=== PATIENT | female | born 1990 | race Caucasian/White ===

== ENCOUNTER 2018-02-24 20:52 | Emergency (ER) | payer OTHER, SELFPAY ==
[2018-02-24 20:53] VITALS: BP 135/70; PULSE 91; RESP 17; TEMP 37; O2SAT 100; BMI 27.8
--- NOTE | 2018-02-24 21:12 | RAD_ITS ---
STUDY: X-RAY - RIGHT HAND REASON FOR EXAM: Female, 27 years old. Injury and pain second finger TECHNIQUE: Three view(s) of the hand were obtained. COMPARISON: None. FINDINGS: Bones: There is minimal cortical disruption in the tuft of the second finger. Joints: The visualized joints are unremarkable. Soft tissues: There is soft tissue swelling in the second finger with a small soft tissue defect in the distal second finger. Foreign body: None RAD/Hand Min 3 Views IMPRESSION: There is a nondisplaced fracture in the tuft of the right second finger. Electronically Signed: Rebecca Lopez MD at 21:46 EST Tel Direct: [phone], Service support ,
[2018-02-24 21:55] VITALS: RESP 16
--- NOTE | 2018-02-24 22:26 | ED.DCSUM_ITS ---
- ER Visit Summary Date of Service: 02/24/18 Chief Complaint: Finger in car door History of Present Illness: The patient is a 27 F who is here after catching her left index finger in the car door. This happened just prior to arrival. She reports pain to the area and noted an abrasion to the area. She is 8 months . Physical Examination: Afebrile vital signs unremarkable. Left index finger shows an abrasion at her left distal index finger, radial side. Nail is in place. The area is tender to palpation. Neurovascular intact. Test Results: X-rays show a tuft fracture. Emergency Department Course and Treatment: I have low suspicion for an open fracture. I did place the patient on Keflex for 3 days for prophylaxis. The wound was cleaned and dressed. Bacitracin applied. Will splint. She may use ice and Tylenol for pain. Follow up with Dr. Moya as needed. Treatment Plan: As above Disposition: Discharge Impression: 1. Left index finger tuft fracture This note was generated with [employer] dictation software. It may contain incorrect words, spelling, and punctuation that were not noted in review of the chart prior to signing ED Disposition - Plan for ED Patient: Chief Complaint: Upper Extremity Injury Referrals: Care Physician,No Primary [Primary Care Provider] -
--- NOTE | 2018-02-24 22:26 | ED.DEP ---
ED Disposition - Plan for ED Patient: Chief Complaint: Upper Extremity Injury Instructions: ED Fx Finger Closed Prescriptions: Cephalexin [Keflex] 500 mg PO Q6 #12 cap Referrals: Justin Moya MD [STAFF PHYSICIAN] -
[2018-02-24 22:49] VITALS: BP 117/76; PULSE 85; RESP 16; O2SAT 99
== END 2018-02-24 22:50 | disposition home or self-care (01) ==
PROVIDERS: Emergency Provider Emergency Medicine
DX: O9A.213 Injury, poisoning and certain other consequences of external causes complicating pregnancy, third trimester (principal); S62.601A Fracture of unspecified phalanx of left index finger, initial encounter for closed fracture; V48.4XXA Person boarding or alighting a car injured in noncollision transport accident, initial encounter; Y93.9 Activity, unspecified; Y92.9 Unspecified place or not applicable; Y99.9 Unspecified external cause status; Z3A.00 Weeks of gestation of pregnancy not specified
CPT/HCPCS: 73130; 99282

== ENCOUNTER 2018-03-14 10:30 | Inpatient (IN) | payer OTHER, SELFPAY ==
[2018-03-08 10:32] VITALS: BMI 27.8
[2018-03-14 10:12] VITALS: BMI 28.6
[2018-03-14 10:25] LABS: ROM Internal Control Test YES-OK TO RESULT pt. (Internal QC)
[2018-03-14 10:27] LABS: ROM Patient Test POSITIVE (Negative)
[2018-03-14] MEDS: Lactated Ringers 1,000 ML 50 ML IV ×3 (10:55→19:16)
[2018-03-14 11:11] LABS: Hematocrit 37.1 % (37-47); Hemoglobin 12.6 g/dl (12.0-15.0); Mean Corpuscular Hgb 30.8 pg (27.0-32.0); Mean Corpuscular Volume 90.7 fL (81-99); Mean Platelet Vol. 9.6 fl (6.2-12.0); Platelet Count 219 K/mm3 (150-450); RBC Distribution Width CV 13.5 % (11.6-14.6); RBC Distribution Width SD 44.5 fl (35.1-43.9); Red Blood Count 4.09 M/mm3 (4.2-5.4); Scan Indicated on CBC? Y/N NO; White Blood Count 11.9 K/mm3 (4.4-11.0)
[2018-03-14] MEDS: 0.9% Saline Lock 10 ML Syringe IV ×3 (11:38→22:07)
[2018-03-14] MEDS: miSOPROStol 25 MCG TABLET VAGINAL (12:18)
[2018-03-14] MEDS: fentaNYL-bupivacaine (epidural) 100 ML BAG EPIDURAL (16:05)
--- NOTE | 2018-03-14 18:29 | PCM.HP.OB ---
History Date of Admission: 03/14/18 Final SUPRIYA: 03/28/18 Final SUPRIYA Source: US <20 weeks Gestational age: 38 Weeks and 0 Days History of this : This is a 27 year-old, 1 para 0 female who presents at 38 weeks with EDC of 03/28/2018 by first trimester ultrasound alone presents complaining of spontaneous rupture membranes at approximately 7:55 AM. She denies any gross vaginal bleeding. She has had good movement. was complicated to date by antepartum anemia and bacterial vaginosis. Medical History: Medical History (Last Updated 03/08/18 @ 10:20 by Keily Alfaro) Anemia D64.9 Z34.90 Vision problems H54.7 Allergies No Known Allergies Allergy (Verified 03/08/18 10:25) Home Medications: Home Medications Ferrous Sulfate 325 mg PO DAILY 02/24/18 Pnv No.121/Iron/Folic Acid [ Multivitamin Tablet] 1 each PO DAILY 02/24/18 Smoking Status: Never smoker Alcohol: None Number of Fetus(es): 1 Heart Tracing: Normal baseline, moderate variability, some accelerations. No repetitive decelerations TOCO Analysis: Contractions every 2-4 min History Past Pregnancies: Past Pregnancies Delivery Date Name GA/Weeks Outcome Route Weight Gender Labor Length Anesthesia Delivery Location Provider FOB Expected Infant Delivery Method: Spontaneous Vaginal Review of Systems Constitutional: Denies: Chills, Fever Cardiovascular: Denies: Chest Pain Respiratory: Denies: Shortness of Breath Skin: Denies: Rash Neurological: Denies: Change in Speech, Slurred speech, Confusion Physical Exam General: Alert, Cooperative, No apparent distress Cardiovascular: Regular Rhythm Lungs: Normal air movement Abdomen: Soft, Non-Distended, Gravid, Appropriate for Gestational Age Extremities:: Other - 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 Spontaneous rupture membranes, now in active labor. Received Cytotec induction. Patient is comfortable with epidural. Estimated weight is less than 4500 g clinically and pelvis is adequate to expect vaginal delivery.
--- NOTE | 2018-03-14 18:35 | HP.PCM_ITS ---
History Date of Admission: 03/14/18 Final SUPRIYA: 03/28/18 Final SUPRIYA Source: US <20 weeks Gestational age: 38 Weeks and 0 Days History of this : This is a 27 year-old, 1 para 0 female who presents at 38 weeks with EDC of 03/28/2018 by first trimester ultrasound alone presents complaining of spontaneous rupture membranes at approximately 7:55 AM. She denies any gross vaginal bleeding. She has had good movement. was complicated to date by antepartum anemia and bacterial vaginosis. Medical History: Medical History (Last Updated 03/08/18 @ 10:20 by Keily Alfaro) Anemia D64.9 Z34.90 Vision problems H54.7 Allergies No Known Allergies Allergy (Verified 03/08/18 10:25) Home Medications: Home Medications Ferrous Sulfate 325 mg PO DAILY 02/24/18 Pnv No.121/Iron/Folic Acid [ Multivitamin Tablet] 1 each PO DAILY 02/24/18 Smoking Status: Never smoker Alcohol: None Number of Fetus(es): 1 Heart Tracing: Normal baseline, moderate variability, some accelerations. No repetitive dece lerations TOCO Analysis: Contractions every 2-4 min History Past Pregnancies: Past Pregnancies Delivery Date Name GA/Weeks Outcome Route Weight Infant Gender Labor Length Anesthesia Delivery Location Provider FOB Expected Infant Delivery Method: Spontaneous Vaginal Review of Systems Constitutional: Denies: Chills, Fever Cardiovascular: Denies: Chest Pain Respiratory: Denies: Shortness of Breath Skin: Denies: Rash Neurological: Denies: Change in Speech, Slurred speech, Confusion Physical Exam General: Alert, Cooperative, No apparent distress Cardiovascular: Regular Rhythm Lungs: Normal air movement Abdomen: Soft, Non-Distended, Gravid, Appropriate for Gestational Age Extremities:: 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 Spontaneous rupture membranes, now in active labor. Received Cytotec induction. Patient is comfortable with epidural. Estimated weight is less than 4500 g clinically and pelvis is adequate to expect vaginal delivery.
[2018-03-14] MEDS: Oxytocin 30 units/NS 500 ml 30 UNITS/500 ML IV.SOLN 334 UNITS IV (20:35)
--- NOTE | 2018-03-14 20:46 | PCM.OB.VAG ---
Vaginal Delivery Maternal Presentation: Spontaneous Rupture of Membranes Method of Induction: Cytotec Amniotic Membrane Rupture Type: Spontaneous at home Amniotic Fluid Description: Clear Final SUPRIYA: 03/28/18 Gestational age: 38 Weeks and 0 Days Date of Procedure: 03/14/18 Pre-Operative Diagnosis: labor Post-Operative Diagnosis: same Surgery/ Procedure Performed: Spontaneous Vaginal Delivery Type of Anesthesia: Epidural Description of Procedure: A vigorous male infant was delivered CHERYL over an intact perineum. The remainder the was delivered with maternal pushing and gentle traction only in less than 15 seconds. The Pitocin infusion was initiated for active management of the third stage. The cord was clamped and cut after 1 minute. The infant was attended to by the waiting nursing staff. The placenta was delivered spontaneously and intact. The cervix and vagina were intact. Sponge and needle counts were correct. A vaginal sweep was completed by me. Presentation: CHERYL Placental Delivery Description: Spontaneous Placenta Disposition: [facility] Cord Vessel Description: 3 Vessels Cord Entanglement: None Drain: Maki to straight drain Estimated Blood Loss: 200 Infant A gender: Male (1 minute): 8 (5 minute): 9 Episiotomy Description: None Laceration: None Medications given after delivery: IV Pitocin Complications: None
[2018-03-14] MEDS: Oxytocin 30 units/NS 500 ml 30 UNITS/500 ML IV.SOLN 167 UNITS IV (21:05)
[2018-03-15 00:14] VITALS: BP 116/69; PULSE 95; RESP 16; TEMP 37.5; O2SAT 99
[2018-03-15] MEDS: Naproxen 250 MG Tablet PO ×3 (00:47→20:11)
[2018-03-15] MEDS: Hydrocortisone 2.5% Crm 1 APPLIC TOPICAL (00:47)
--- NOTE | 2018-03-15 01:03 | NURSING ---
0040 epidural cath d/c with blue tip intact 0045 pt up to restroom, sherwood cath d/c pt tolerated well
[2018-03-15 03:30] VITALS: BP 105/56; PULSE 62; RESP 16; TEMP 37.3; O2SAT 99
[2018-03-15 08:30] VITALS: BP 99/53; PULSE 92; RESP 16; TEMP 36.8; O2SAT 96
--- NOTE | 2018-03-15 10:04 | PCM.PN.OB ---
Subjective: Patient complaining of cramping especially with nursing. Average lochia. No nausea vomiting. - Physical Exam General: Alert, Cooperative, No apparent distress Vital Signs Temp Pulse Resp BP Pulse Ox 99.2 F H 62 16 105/56 L 99 03/15/18 03:30 03/15/18 03:30 03/15/18 03:30 03/15/18 03:30 03/15/18 03:30 Oxygen Delivery Method Room Air Weight: 71.1 kg Body Mass Index (BMI) 28.6 Intake and Output for Last 24 Hours 03/13/18 03/14/18 03/15/18 23:59 23:59 23:59 Intake Total 2053 / 4 Output Total 2800 / 2800 2400 / 2400 Balance -746 / -746 -2400 / -2400 Laboratory Tests Past 24 Hrs 03/14/18 03/14/18 03/14/18 09:50 10:55 10:55 WBC 11.9 H RBC 4.09 L Hgb 12.6 Hct 37.1 MCV 90.7 MCH 30.8 MCHC 34.0 RDW 13.5 RDW Differential 44.5 H Plt Count 219 MPV 9.6 Vag Amniotic Fld Detect POSITIVE H Blood Type O POSITIVE Antibody Screen NEGATIVE Medical Necessity - Tobacco Use Smoking Status: Never smoker Assessment/Plan All Active Problems (Last Updated 03/08/18 @ 10:20 by Keily Alfaro) Closed nondisplaced fracture of distal phalanx of right index finger (Acute) Crushing injury of right index finger, initial encounter (Acute) day #1. Patient is doing well. We will see today to work on nursing. Likely discharge home tomorrow.
[2018-03-15] MEDS: Senna/Docusate Sodium 1 Tablet PO (10:58)
[2018-03-15 16:00] VITALS: BP 112/65; PULSE 87; RESP 20; TEMP 36.7; O2SAT 95
[2018-03-15 20:25] VITALS: BP 108/61; PULSE 87; RESP 16; TEMP 36.4; O2SAT 99
[2018-03-16 02:51] VITALS: BP 111/78; PULSE 82; RESP 18; TEMP 36.2; O2SAT 98
[2018-03-16 08:15] VITALS: BP 113/70; PULSE 78; RESP 16; TEMP 36.7; O2SAT 95
--- NOTE | 2018-03-16 08:23 | PCM.PN.OB ---
Subjective: Patient sitting up in bed, working with nursing staff at this time to help breastfeed . Patient has slightly inverted nipples, using shells and latch assist to help hal nipples. Patient reports no issues with urination or ambulation. Patient reports no BURNETT, scotoma or dizziness. Patient desires discharge later in day today after more contact time with consultants. Objective: Nipples without cracks or blisters, no erythema noted Abdomen NT x 4 quadrants, FF midline @ 2FB below umbilicus +2/4 reflexes in LE, no calf tenderness or edema noted perineum well approximated, scant rubra lochia - Physical Exam General: Alert, Oriented x3, Cooperative HEENT: Atraumatic, Normocephalic Neck: Supple Lungs: Normal air movement Cardiovascular: Regular rate, No murmurs Abdomen: Soft, Non Tender, Non-Distended Extremities: No edema, Capillary Refill Less than 3 Seconds Skin: No rashes, No breakdown Musculoskeletal: No Tenderness to Palpation of Joints or Extremities Neurological: Cranial nerves II-XII grossly intact Psych/Mental Status: Normal Affect, Appropriate Vital Signs Temp Pulse Resp BP Pulse Ox 97.1 F L 82 18 111/78 98 03/16/18 02:51 03/16/18 02:51 03/16/18 02:51 03/16/18 02:51 03/16/18 02:51 Oxygen Delivery Method Room Air Weight: 156 lb 11.979 oz Body Mass Index (BMI) 28.6 Intake and Output for Last 24 Hours 03/14/18 03/15/18 03/16/18 23:59 23:59 23:59 Intake Total 2053 / 2053 Output Total 2800 / 2800 2400 / 2400 Balance -746 / -746 -2400 / -2400 Medical Necessity - Tobacco Use Smoking Status: Never smoker Assessment/Plan All Active Problems (Last Updated 03/08/18 @ 10:20 by Keily Alfaro) Closed nondisplaced fracture of distal phalanx of right index finger (Acute) Crushing injury of right index finger, initial encounter (Acute) 27 y/o now, s/p , PPD #2, Normal PP Course P: 1) Discharge to home pending discharge 2) RTC at 2 weeks and 6 week PP with [facility] Samantha BALDWIN
[2018-03-16] MEDS: Dibucaine 30 GM Tube 1 APPLIC TOPICAL (08:29)
[2018-03-16 14:00] VITALS: BP 115/68; PULSE 89; RESP 16; TEMP 37.3; O2SAT 96
[2018-03-16 18:00] VITALS: BP 119/78; PULSE 89; RESP 16; TEMP 37.3; O2SAT 97
== END 2018-03-16 21:50 | disposition home or self-care (01) | DRG 807 ==
LOC: WPOUT 10:34 → WP 10:37
PROVIDERS: Admitting Provider Obstetrics & Gynecology; Referring Provider Obstetrics & Gynecology; Visit Provider Obstetrics & Gynecology
DX: O99.02 Anemia complicating childbirth (principal); Z37.0 Single live birth; Z3A.38 38 weeks gestation of pregnancy
CPT/HCPCS: 59025; 59050; 84112; 85027; 86850; 86900; 99218; J7120; 90686; A4216; G0378

== ENCOUNTER 2018-03-27 02:22 | Emergency (ER) | payer OTHER, SELFPAY ==
--- NOTE | 2018-03-27 03:30 | US_ITS ---
STUDY: ULTRASOUND OF THE FEMALE PELVIS - COMPLETE REASON FOR EXAM: Female, 27 years old. Vaginal bleeding with clots. 12 days .. TECHNIQUE: Transabdominal TECHNICAL QUALITY: Adequate. COMPARISON: None. FINDINGS: The uterus is anteverted and is in a midline position. The uterus measures 11.1 x 7.8 x 5.9 cm. Normal uterine cervix. The contour of the endometrium is not well defined. Endometrium measures approximately 2.5 cm in thickness and it is heterogeneous. Color Doppler signal is seen within the endometrium, and it may contain retained product of conception.. There is no demonstrated endometrial mass. There is no demonstrated myometrial mass. I.U.D. - The patient does not have an I.U.D. The right ovary is nonvisualized. The left ovary is visualized. The left ovary measures 3.0 x 2.5 x 2.1 cm. There is no left ovarian cyst or ovarian mass. There is no visualized left adnexal mass or complex lesion. There is normal arterial and normal venous vascularity. There is no fluid in the cul-de-sac. The volume of the bladder was 75 ml. Polycystic ovary disease: No. US/Pelvic (Non ) IMPRESSION: Thickened and heterogeneous endometrium, which contains color Doppler signal, suspicious for retained products of conception. Electronically Signed: Horace Harmon MD at 4:21 EST , Service support ,
[2018-03-27 04:35] LABS: White Blood Count 10.6 K/mm3 (4.4-11.0)
[2018-03-27 04:36] LABS: Differential Indicated SCAN CRITERIA MET; Hemoglobin 14.6 g/dl (12.0-15.0); Mean Corpuscular Hgb 30.5 pg (27.0-32.0); Mean Platelet Vol. 8.1 fl (6.2-12.0); Neutrophil % 62.8 % (47-70); POSITIVE COUNT NO; POSITIVE DIFFERENTIAL NO; POSITIVE MORPHOLOGY YES; Platelet Count 235 K/mm3 (150-450); RBC Distribution Width CV 12.6 % (11.6-14.6); RBC Distribution Width SD 41.1 fl (35.1-43.9); Red Blood Count 4.78 M/mm3 (4.2-5.4)
[2018-03-27 04:37] LABS: Absolute Lymphocyte Count 2.69 X10^3/ul (0.83-4.51); Absolute Neutrophil Count 6.6 X10^3/uL (2.0-7.7); Basophil# 0.05 X10^3/uL; Basophil% 0.5 % (0-1); Eosinophil# 0.28 X10^3/uL; Eosinophils% 2.6 % (0-5); Lymphocyte # 2.69 X10^3/ul (4.0); Lymphocyte % 25.4 % (19-41); Monocyte# 0.89 X10^3/uL; Monocyte% 8.4 % (0-10); Neutrophil # 6.64 X10^3/uL (2.7-7.7)
[2018-03-27 04:38] LABS: Anisocytosis RARE; Platelet Estimate ADEQUATE (ADEQ)
[2018-03-27 05:04] LABS: ALB/GLOB Ratio 0.8 RATIO (0.9-2.4); AST(SGOT) 18 U/L (15-37); Alanine Aminotransfer ALT/SGPT 24 U/L (13-56); Albumin, Serum 3.1 g/dL (3.2-5.0); Alkaline Phosphatase 134 U/L (45-117); Anion Gap 8 (5-15); BUN 21 mg/dL (7-18); Calcium,Total 9.1 mg/dL (8.5-10.1); Chloride 108 mmol/L (98-107); Creatinine, Serum 0.75 mg/dL (0.55-1.02); EST Glomerular Filtration Rate 97 mL/min (>60); Est Glom Filt Rate - Afr Amer 118 mL/min (>60); Glucose 101 mg/dL (74-106); Potassium 3.9 mmol/L (3.5-5.1); Protein, Total 7.1 g/dL (6.4-8.2); Sodium Level 140 mmol/L (136-145)
--- NOTE | 2018-04-17 01:17 | ED.DCSUM_ITS ---
- ER Visit Summary Date of Service: 03/27/2018 Chief Complaint: Vaginal bleeding History of Present Illness: The patient is a 27 F who is 12 days . Tonight she developed bleeding with large clots and mild cramping. She states that her lochia had significantly improved following her delivery. She is Ab0. Dr. Mccloud is her physician. No significant medical problems. No prior surgeries. No syncope. Physical Examination: Afebrile vital signs are stable Gen: Well-nourished well-developed Head: Normocephalic atraumatic Eyes: Perrl EOMI ENT: TMs clear no rhinorrhea moist mucous membranes Neck: Supple no lymphadenopathy no JVD nontender CVS: Regular rate rhythm no murmurs normal S1-S2 Respiratory: No distress clear to auscultation bilaterally chest nontender Abdomen: Soft nontender nondistended normal bowel sounds no masses Back: Nontender Extremity: Nontender no edema Skin: Normal color no rash Neuro: alert orientated ?3 CN II-XII intact normal strength sensation reflexes gait cerebellar Psych: Normal affect normal mood Test Results: Basic labs were obtained as well as pelvic ultrasound. Emergency Department Course and Treatment: I reviewed labs pelvic ultrasound history with on-call CLINICAL TRIAL COORDINATOR. They like to have the patient discharged home and they will see her in the office in a couple hours. We did talk about the possibility of retained products Impression: 1. bleeding This note was generated with [employer] dictation software. It may contain incorrect words, spelling, and punctuation that were not noted in review of the chart prior to signing ED Disposition - Plan for ED Patient: Disposition: Home or Assisted Living Referrals: Care Physician,No Primary [Primary Care Provider] -
--- OUTSIDE RECORDS SUMMARY | 2018-06-28 16:45 | XMS RPT_ITS ---
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 35.1-43.9 fl Normal RDW SD 41.1 LAB L100.1900 150-450 K/mm3 Normal PLT 235 LAB L100.2000 6.2-12.0 fl Normal MPV 8.1 LAB L100.2100 47-70 % Normal NEUT% 62.8 LAB L100.2200 19-41 % Normal LY% 25.4 LAB L100.2300 0-10 % Normal MONO% 8.4 LAB L100.2400 0-5 % Normal EO% 2.6 LAB L100.2500 0-1 % Normal BASO% 0.5 LAB L100.2550 0.0-0.9 % Normal IM GRAN % 0.300 Result Comment: IG% - Immature Granulocytes (promyelocytes, myelocytes and metamyelocytes) > 1% indicates that a LEFT SHIFT is Present. LAB L100.2620 2.0-7.7 X10 3/uL Normal Absolute Neut 6.6 LAB L100.2720 0.83-4.51 X10 3/ul Normal Absolute Lymph 2.69 LAB L100.5500 ADEQ Normal PLT EST ADEQUATE LAB L100.7300 Normal ANISO RARE Performed By: #### L100.0100 #### [facility] [place], [address] PROGRESS Observed: 03/15/2018 Status: COMPLETED Source: [place] 4:43 PM [facility] REPOSITORY HNO ID: [id number] Author: Emily Mosley LPN Service: (none) Author Type: (none) Type: Progress Notes Filed: 03/15/2018 4:43 PM Note Text: Pt delivered via at [facility] on 03/14/[address] Georges. See OB Outcome note. Emily Mosley LPN HOSP Observed: 03/15/2018 Status: COMPLETED Source: [place] 12:00 AM [facility] REPOSITORY Patient Update (WOOB) KELLY KANG ([id number]) 1990 F Date Time Provider Department 03/15/18 RUBEN GEORGES During your visit today, we recorded the following information about you: Emily Mosley LPN 03/15/2018 4:43 PM Signed Pt delivered via at [facility] on 03/14/[address] Georges. See OB Outcome note. Emily Mosley LPN Allergies As of Date: 03/15/2018 Noted Allergy Reaction environmental [Other] 07/18/2005 Comments: itchy, watery eyes in summer Date Reviewed: 03/09/2018 Reviewed by: Tricia Magana - Fully Assessed Prescriptions as of 03/15/2018 Sig: CEPHALEXIN 500 MG CAPSULE FERROUS SULFATE 325 MG (65 MG* Take 1 tablet by mouth twice * VITAMIN,CALCIUM,MINE* Take 1 tablet by mouth. Problem List As Of Date 03/15/2018 Noted Resolved Anal Pruritus [L29.0] INVALID FOR* History of depression [Z86.59] INVALID FOR* More... Family history of congenital heart defect [Z82.*INVALID FOR* More... Encounter for supervision of normal first pregn*INVALID FOR* Anemia of , third trimester [O99.013] INVALID FOR* More... BV (bacterial vaginosis) [N76.0, B96.89] INVALID FOR* More... Encounter Status:Closed by ABIGAIL MOSLEYBERLY ROSELINE on 03/15/18 EMERGENCY DEPARTMENT Observed: 03/14/2018 Status: F Source: [place] SUMMARY 10:28 PM [facility] REPOSITORY [facility] Medical Records Department [address] [place] [address] Emergency Department Summary 02/24/182223 MR#: [id number] Acct: [id number] Name: KELLY KANG Rep #: [id number] : 1990 27 From: Sharif Rosa MD PCP: Care Physician, No Primary Status: DEP ER ADDENDUM by Sharif Rosa MD on 03/14/18 at 2228 Addendum: Please note it was the right index finger that was injured in the car door. Corrected impression 1. Right index finger tuft fracture 03/14/182227 Date Sharif Rosa MD cc: No Primary Care Physician * Signed - ER Visit Summary Date of Service: 02/24/18 Chief Complaint: Finger in car door History of Present Illness: The patient is a 27 F who is here after catching her left index finger in the car door. This happened just prior to arrival. She reports pain to the area and noted an abrasion to the area. She is 8 months . Physical Examination: Afebrile vital signs unremarkable. Left index finger shows an abrasion at her left distal index finger, radial side. Nail is in place. The area is tender to palpation. Neurovascular intact. Test Results: X-rays show a tuft fracture. Emergency Department Course and Treatment: I have low suspicion for an open fracture. I did place the patient on Keflex for 3 days for prophylaxis. The wound was cleaned and dressed. Bacitracin applied. Will splint. She may use ice and Tylenol for pain. Follow up with Dr. Slaby as needed. Treatment Plan: As above Disposition: Discharge Impression: 1. Left index finger tuft fracture This note was generated with Matchmove dictation software. It may contain incorrect words, spelling, and punctuation that were not noted in review of the chart prior to signing ED Disposition - Plan for ED Patient: Chief Complaint: Upper Extremity Injury Referrals: Care Physician,No Primary [Primary Care Provider] - What to do if you have Problems For any increased pain, shortness of breath, bleeding, nausea or vomiting, chest pain, or any unexpected problems, contact your Primary Care Provider. Call [facility] ([phone]) or report to the closest Emergency Room. Call 911 if necessary. 02/25/18 0036 <Electronically signed by Sharif Rosa MD> Date Sharif Rosa MD Cosigner Signature (If Indicated): Date CC: No Primary Care Physician OPERATIVE REPORT Observed: 03/14/2018 Status: F Source: [place] 8:48 PM [facility] REPOSITORY [facility] Medical Records Department [address] [place] [address] [place] [address] Operative Report 03/14/182045 MR#: [id number] Acct: [id number] Name: KELLY KANG Rep #: [id number] : 1990 27 From: Ruben Georges MD PCP: Care Physician, No Primary Status: ADM IN Location: [place] [id number] Vaginal Delivery Maternal Presentation: Spontaneous Rupture of Membranes Method of Induction: Cytotec Amniotic Membrane Rupture Type: Spontaneous at home Amniotic Fluid Description: Clear Final SUPRIYA: 03/28/18 Gestational age: 38 Weeks and 0 Days Date of Procedure: 03/14/18 Pre-Operative Diagnosis: labor Post-Operative Diagnosis: same Surgery/ Procedure Performed: Spontaneous Vaginal Delivery Type of Anesthesia: Epidural Description of Procedure: A vigorous male infant was delivered CHERYL over an intact perineum. The remainder the was delivered with maternal pushing and gentle traction only in less than 15 seconds. The Pitocin infusion was initiated for active management of the third stage. The cord was clamped and cut after 1 minute. The was attended to by the waiting nursing staff. The placenta was delivered spontaneously and intact. The cervix and vagina were intact. Sponge and needle counts were correct. A vaginal sweep was completed by me. Presentation: CHERYL Placental Delivery Description: Spontaneous Placenta Disposition: [facility] Cord Vessel Description: 3 Vessels Cord Entanglement: None Drain: Maki to straight drain Estimated Blood Loss: 200 Infant A gender: Male (1 minute): 8 (5 minute): 9 Episiotomy Description: None Laceration: None Medications given after delivery: IV Pitocin Complications: None 03/14/182047 <Electronically signed by Ruben Georges MD> Date Ruben Georges MD CC: No Primary Care Physician; Ruben Georges MD Signed HISTORY AND PHYSICAL Observed: 03/14/2018 Status: F Source: [place] EXAM 6:40 PM [facility] REPOSITORY [facility] Medical Records Department [address] [place] [address] History and Physical 03/14/18 1829 MR#: [id number] Acct: [id number] Name: KELLY KANG Rep #: [id number] : 1990 27 From: Ruben Georges MD PCP: Care Physician, No Primary Status: ADM IN Location: [id number] History Date of Admission: 03/14/18 Final SUPRIYA: 03/28/18 Final SUPRIYA Source: US <20 weeks Gestational age: 38 Weeks and 0 Days History of this : This is a 27 year-old, 1 para 0 female who presents at 38 weeks with EDC of 03/28/2018 by first trimester ultrasound alone presents complaining of spontaneous rupture membranes at approximately 7:55 AM. She denies any gross vaginal bleeding. She has had good movement. was complicated to date by antepartum anemia and bacterial vaginosis. Medical History: Medical History (Last Updated 03/08/18 @ 10:20 by Keily Alfaro) Anemia D64.9 Z34.90 Vision problems H54.7 Allergies No Known Allergies Allergy (Verified 03/08/18 10:25) Home Medications: Home Medications Ferrous Sulfate 325 mg PO DAILY 02/24/18 Pnv No.121/Iron/Folic Acid [ Multivitamin Tablet] 1 each PO DAILY 02/24/18 Smoking Status: Never smoker Alcohol: None Number of Fetus(es): 1 Heart Tracing: Normal baseline, moderate variability, some accelerations. No repetitive decelerations TOCO Analysis: Contractions every 2-4 min History Past Pregnancies: Past Pregnancies Delivery Name GA/Weeks Outcome Route WeiInfant GeLabor LenAnesthesiDelivery Provider FOB Date ght nder gth a Location Expected Delivery Method: Spontaneous Vaginal Review of Systems Constitutional: Denies: Chills, Fever Cardiovascular: Denies: Chest Pain Respiratory: Denies: Shortness of Breath Skin: Denies: Rash Neurological: Denies: Change in Speech, Slurred speech, Confusion Physical Exam General: Alert, Cooperative, No apparent distress Cardiovascular: Regular Rhythm Lungs: Normal air movement Abdomen: Soft, Non-Distended, Gravid, Appropriate for Gestational Age Extremities:: Other - 1+ edema SURVEILLANCE SPECIALIST: Normal external genitalia Estimated gestational size: Appropriate for gestational size Presentation: Cephalic Assessment/Plan All Active Problems (Last Updated 03/08/18 @ 10:20 by Keily Alfaro) Closed nondisplaced fracture of distal phalanx of right index finger (Acute) Crushing injury of right index finger, initial encounter (Acute) This is a 27 year-old, 1 para 0 at 38 weeks gestation. Spontaneous rupture membranes, now in active labor. Received Cytotec induction. Patient is comfortable with epidural. Estimated weight is less than 4500 g clinically and pelvis is adequate to expect vaginal delivery. 03/14/18 1840 <Electronically signed by Ruben Georges MD> Date Ruben Georges MD Cosigner Signature: Date (if applicable) CC: No Primary Care Physician; Ruben Georges MD Signed CBC-COMPLETE BLOOD CNT Collected: 03/14/2018 Status: F Source: [place] NO DIFF 10:55 AM [facility] REPOSITORY TYPE CODE TESTS RESULT OUT OF RANGE REFERENCE UNITS LAB L100.1000 4.4-11.0 K/mm3 High WBC 11.9 LAB L100.1200 4.2-5.4 M/mm3 Low RBC 4.09 LAB L100.1300 12.0-15.0 g/dl Normal HGB 12.6 LAB L100.1400 37-47 % Normal HCT 37.1 LAB L100.1500 81-99 fL Normal MCV 90.7 LAB L100.1600 27.0-32.0 pg Normal MCH 30.8 LAB L100.1700 32-36 g/gl Normal MCHC 34.0 LAB L100.1810 11.6-14.6 % Normal RDW CV 13.5 LAB L100.1820 35.1-43.9 fl High RDW SD 44.5 LAB L100.1900 150-450 K/mm3 Normal PLT 219 LAB L100.2000 6.2-12.0 fl Normal MPV 9.6 Performed By: #### L100.0500 #### [facility] [address] [facility]. [place], [place], [address] TYPE AND SCREEN Collected: 03/14/2018 Status: F Source: [place] 10:55 AM [facility] REPOSITORY Order Comment: Reason for Type AND Screen/Red Cells: ROUTINE TYPE CODE TESTS RESULT OUT OF RANGE REFERENCE UNITS LAB B10.0800 O Normal BLOOD TYPE GEL POSITIVE LAB B100.4000 Normal Antibody NEGATIVE Screen Performed By: #### B101.7450 #### [facility] [address] [place], [place], [address] (ROM) RUPTURE OF Collected: 03/14/2018 Status: F Source: [place] [facility] 9:50 AM [facility] REPOSITORY TYPE CODE TESTS RESULT OUT OF REFERENCE UNITS RANGE LAB L205.1310 Negative High ROM POSITIVE Result Comment: Amniotic fluid present indicates rupture of Membranes. RESULTS CALLED TO ARMIDA 03/14/18 Zack Corteztzer. REPORT READ BACK BY ARMIDA . Performed By: #### L205.1000 #### [facility] [place], [address] PLASTIC SURGERY Observed: 03/12/2018 Status: F Source: [place] VISIT REPORT 10:50 AM [facility] REPOSITORY [facility] [address] [place] [address] OFFICE VISIT Date of Service: 03/08/18 MR#: [id number] Acct: [id number] Name: KELLY KANG Rep #: [id number] : 1990 Provider: Justin Moya MD Age/Sex: 27/F Location: [facility] Status: Signed Intake Vital Signs03/08/18 Body Mass Index (BMI) 27.8 03/08/18 Height 5 ft 2 in 03/08/18 Weight: 155 lb Intake Visit Reasons: evaluation crush injury right index finger tip with nondisplaced fracture Sales Service Promoter Required: No Accompanied by: None Is patient in pain?: Yes (RIGHT HAND INDEX FINGER PAIN THROBBING WHEN BUMPS IT) Pain scale (1-10): 5 Allergies No Known Allergies Allergy (Verified 03/08/18 10:25) Medications Cephalexin [Keflex] 500 mg PO Q6 #12 cap 02/24/18 [Rx] Ferrous Sulfate 325 mg PO DAILY 02/24/18 [History Confirmed 02/24/18] Pnv No.121/Iron/Folic Acid [ Multivitamin Tablet] 1 ea PO DAILY 02/24/18 [History Confirmed 02/24/18] Is last menstrual period known: Yes Post menopausal: No Patient : Yes PFSH Medical History Anemia (Acute) (Acute) Vision problems (Acute) Family History Mother Anemia Anxiety Father Arthritis Hypertension Grandfather Diabetes Grandmother Diabetes Social History Smoking Status: Never smoker alcohol intake: former substance use type: does not use additional social history: DOES NOT USE ASPIRIN DOES NOT USE IBUPROFEN HPI evaluation crush injury right index finger tip with nondisplaced fracture: Details: HISTORY OF PRESENT ILLNESS 27 year old woman who is 8 months who caught her right index finger in the car door on 02/24/18. In the ED, an xray showed a nondisplaced tuft fracture of the distal phalanx. She was given Keflex for a few days and a tip splint. She has pain in the tip of her right index finger when she bumps it. She presents today for further evaluation and treatment. REVIEW OF SYSTEMS General - Denies fever, fatigue, and weight loss. Eyes - Denies cataracts and glaucoma. ENT - Denies nasal congestion and sore throat. Endocrine - Denies excessive thirst and urination. Skin - Denies suspicious lesions and skin cancer. Musculoskeletal - Denies joint pain, joint stiffness, weakness of muscles and joints, back pain, and arthritis. Has nondisplaced fracture distal tuft of distal phalanx right index finger from crush injury. Neuro - Denies headaches. Cardiovascular - Denies chest pain, fatigue, and shortness of breath with exertion. Psych - Denies anxiety and depression. Respiratory - Denies chronic cough and shortness of breath. Gastrointestinal - Denies nausea, vomiting, diarrhea. Has constipation. Hematologic - Denies abnormal bruising and bleeding. Has anemia. Genitourinary - Denies hematuria. Has urinary frequency. Is 8 months . PHYSICAL EXAMINATION General - Alert and Oriented. HEENT - PERRL. EOMI. Throat is clear. Neck - Supple and nontender. No cervical adenopathy. Lungs - Clear to auscultation. Heart - Regular rate and rhythm. Abdomen - Soft and nondistended. Extremities - FROM. No axillary adenopathy. Radial pulses are palpable. Patient is right hand dominant. On the right index finger is a healing abrasion on the radial aspect of the finger tip. Nail plate is intact. No evidence of subungual hematoma. Flexion and extension are intact. Mild paresthesias at the finger tip. Mild swelling at the tip. Mild tenderness to palpation. Fingers are warm with good capillary refill. Neuro - CN II-XII grossly intact. Psych - Normal mood and affect. ASSESSMENT 1. Crush injury right index finger tip. 2. Nondisplaced tuft fracture of distal phalanx right index finger. 3. 8 months . PLAN Xray reviewed. Nondisplaced tuft fracture is subtle. Continue tip splint. I shortened it so she has range of motion of her PIP and DIP joints. Encourage range of motion exercises to minimize stiffness. With a crush nature to the injury, she may develop chronic problems that may need to be addressed in the future. These include a nail deformity or a painful bone cyst with suboptimal healing of the nondisplaced fracture. Followup 2 weeks unless she is in labor. Then she can followup after the delivery of her child. Will repeat the xray after the delivery of the child. No need to continue antibiotics at this time as there is no evidence of infection. However these types of fractures in the setting of a crush injury can develop suboptimal healing of the bone and possible osteomyelitis. Will reassess after the delivery of her child and may resume antibiotics at that time. Patient was informed of the risks and complications of the procedure including alternatives to surgery. These were discussed with the patient personally. Patient voices understanding and wishes to proceed with the current plan of nonoperative splinting. There is no need for urgent surgery at this time. If she develops any late effects of her crush injury or nondisplaced tuft fracture, can discuss surgical options at that time. Assessment AND Plan Problems 1. Closed nondisplaced fracture of distal phalanx of right index finger S62.660A 2. Crushing injury of right index finger, initial encounter S67.190A 3. Third trimester Z34.93 Coding Level of Care Code Off vis,new,level 4 Diagnoses Closed nondisplaced fracture of distal phalanx of right index finger S62.660A Crushing injury of right index finger, initial encounter S67.190A Third trimester Z34.93 03/12/18 1050 <Electronically signed by Justin Moya MD> Date Justin Moya MD Cosigner Signature: Date (if applicable) CC: GROUP B STREP PCR Collected: 03/02/2018 Status: F Source: [place] 11:45 AM [facility] RE[facility] TYPE CODE TESTS RESULT OUT OF REFERENCE UNITS RANGE LAB GBPCRT Negative for GROUP Group B B STREP PCR Streptococcus by PCR. Performed By: #### GBPCR #### [facility] [address] [place], [place] [address] DISCHARGE INSTRUCTION Observed: 02/25/2018 Status: F Source: [place] 12:36 AM [facility] REPOSITORY [facility] Medical Records Department [address] [place] [address] Discharge Instruction 02/24/186 MR#: [id number] Acct: [id number] Name: KELLY KANG Rep #: [id number] : 1990 27 From: Sharif Rosa MD PCP: Care Physician, No Primary Status: DEP ER ED Disposition - Plan for ED Patient: Chief Complaint: Upper Extremity Injury Instructions: ED Fx Finger Closed Prescriptions: Cephalexin [Keflex] 500 mg PO Q6 #12 cap Referrals: Justin Moya MD [STAFF PHYSICIAN] - What to do if you have Problems For any increased pain, shortness of breath, bleeding, nausea or vomiting, chest pain, or any unexpected problems, contact your Primary Care Provider. Call [facility] ([phone]) or report to the closest Emergency Room. Call 911 if necessary. 02/25/18 0036 <Electronically signed by Sharif Rosa MD> Date Sharif Rosa MD Cosigner Signature (If Indicated): Date CC: No Primary Care Physician HAND MIN 3 VIEWS Observed: 02/24/2018 Status: F Source: [place] 9:13 PM [facility] REPOSITORY [facility] Imaging Services [address] [place] [address] Hand Min 3 Views MR#: [id number] Acct: [id number] Name: Kelly KangJourdan Rep #: [id number] : 1990 F 27 From: Rebecca Lopez MD PCP: Status: PRE ER Study: Hand Min 3 Views Date of Exam: 02/24/18 Exam# [id number] Ordering Dr: ProviderChris STUDY: X-RAY - RIGHT HAND REASON FOR EXAM: Female, 27 years old. Injury and pain second finger TECHNIQUE: Three view(s) of the hand were obtained. COMPARISON: None. FINDINGS: Bones: There is minimal cortical disruption in the tuft of the second finger. Joints: The visualized joints are unremarkable. Soft tissues: There is soft tissue swelling in the second finger with a small soft tissue defect in the distal second finger. Foreign body: None RAD/Hand Min 3 Views IMPRESSION: There is a nondisplaced fracture in the tuft of the right second finger. Electronically Signed: Rebecca Lopez MD at 21:46 EST Tel Direct: [phone], Service support , CC: ED PHYSICIAN PROVIDER Senior Network Systems Engineer: Signed PROGRESS Observed: 02/20/2018 Status: COMPLETED Source: [place] 2:50 PM [facility] [place] REPOSITORY [facility] ID: [id number] Author: Sejal Monge Ma Service: (none) Author Type: (none) Type: Progress Notes Filed: 02/20/2018 3:01 PM Note Text: Patient identified by name and date of . Kelly Kang presents today for a vaccination of Tdap. Patient denies an allergy to latex: yes Patient denies a severe (life-threatening) allergy to a previous dose of Tdap, DTP, DTaP, DT or Td vaccine. Yes Patient denies history of epilepsy or neurological problems: Yes Patient is afebrile and denies being moderately or severely ill: Yes Patient denies history of Guillain-[place] Syndrome (a severe paralytic illness): Yes Tdap Adacel injection was given without incident. See immunizations for details of immunizations administered today. VIS sheet provided: Yes Provider Tenisha Benson MD was present in office at time of injection. PROGRESS Observed: 02/20/2018 Status: COMPLETED Source: [place] 9:13 AM [facility] REPOSITORY HNO ID: [id number] Author: Rebecca Moise RN Service: (none) Author Type: (none) Type: Progress Notes Filed: 02/20/2018 9:14 AM Note Text: CLASS Date Attended: February 19, 2018 Introduction Credentials Expectations of a 3-hour class 1. Review of handouts 2. Hospital tour 3. Baby care class Stages of labor video Stages to call the doctor 1. SROM 2. Cervical changes 3. Bleeding vs. bloody show 4. Decreased movement Hospital Procedures 1. Internal/external monitors 2. IV therapy 3. AROM 4. Pitocin Pain Management 1. Epidural 2. Other pain medications 3. No medicinal comfort measures 4. Breathing/pushing Delivery methods 1. 2. Forceps 3. Vacuum extractor Physician presentations 1. OB-marine tower operator 2. Security Solutions Engineer 1. Mom's first hour 2. baby's first hour 3. baby's discharge protocol Completed childbirth education class. Rebecca Moise RN CNCNPATED Observed: 02/19/2018 Status: COMPLETED Source: [place] 12:00 AM [facility] REPOSITORY Education (WOOB) KELLY KANG ([id number]) 1990 F Date Time Provider Department 02/19/18 NURSE PNOB [facility] WOOB Reason for Visit: Class [4222] Progress Notes: Rebecca Moise RN 02/20/2018 9:14 AM Signed CLASS Date Attended: February 19, 2018 Introduction Credentials Expectations of a 3-hour class 1. Review of handouts 2. Hospital tour 3. Baby care class Stages of labor video Stages to call the doctor 1. SROM 2. Cervical changes 3. Bleeding vs. bloody show 4. Decreased movement Hospital Procedures 1. Internal/external monitors 2. IV therapy 3. AROM 4. Pitocin Pain Management 1. Epidural 2. Other pain medications 3. No medicinal comfort measures 4. Breathing/pushing Delivery methods 1. 2. Forceps 3. Vacuum extractor Physician presentations 1. OB-marine tower operator 2. Security Solutions Engineer 1. Mom's first hour 2. baby's first hour 3. baby's discharge protocol Completed childbirth education class. Rebecca Moise RN During your visit today, we recorded the following information about you: Allergies As of Date: 02/19/2018 Noted Allergy Reaction environmental [Other] 07/18/2005 Comments: itchy, watery eyes in summer Date Reviewed: 02/05/2018 Reviewed by: Ruben Georges - Fully Assessed Prescriptions as of 02/19/2018 Sig: FERROUS SULFATE 325 MG (65 MG* Take 1 tablet by mouth twice * VITAMIN,CALCIUM,MINE* Take 1 tablet by mouth. Encounter Status:Closed by REBECCA MOISE RN on 02/20/18 Observed: 02/05/2018 Status: F Source: [place] [facility] PREP 5:17 PM [facility] REPOSITORY Sp. Request/Comment: - Swab Smear Result - Negative for Trichomonas vaginalis antigen This test was developed and its performance characteristics determined by [facility]'s [facility] Pathology and Laboratory Medicine [place] ([facility] It has not been cleared or approved by the FDA. -[facility] is regulated under CLIA as qualified to perform high-complexity testing. This test is used for clinical purposes. It should not be regarded as investigational or for research. Performed By: #### TRICHO #### [facility] OnetoOnetext0 PixelPin [place] [id number] Observed: 02/05/2018 Status: F Source: [place] BACT/CAND VAG GRM [facility] 5:17 PM [facility] REPOSITORY Sp. Request/Comment: - Swab Smear Result - BACTERIAL VAGINOSIS RESULT: Stain results consistent with bacterial vaginosis. --> ABNORMAL ALERT No Yeast observed Few Polymorphonuclear leukocytes Many --> ABNORMAL ALERT Clue cells present --> ABNORMAL ALERT Performed By: #### BVCNSM #### [facility] OnetoOnetext0 Pixel[place] [id number] PROGRESS Observed: 01/10/2018 Status: COMPLETED Source: [place] 1:34 PM [facility] REPOSITORY HNO ID: [id number] Author: Nuris Fuller Service: (none) Author Type: Physician Type: Progress Notes Filed: 01/10/2018 1:34 PM Note Text: Can you please let the patient know I sent in iron to take BID for anemia? Thanks! CBC AND DIFFERENTIAL Collected: 01/09/2018 Status: F Source: [place] 9:54 AM [facility] REPOSITORY TYPE CODE TESTS RESULT OUT OF REFERENCE UNITS RANGE LAB WBC 3.70-11.00 k/uL WBC High 13.91 LAB RBC 3.90-5.20 m/uL Low RBC 3.51 LAB HGB 11.5-15.5 g/dL Low Hemoglobin 10.5 LAB HCT 36.0-46.0 % Low Hematocrit 33.6 LAB MCV 80.0-100.0 fL MCV 95.7 LAB MCH 26.0-34.0 pG MCH 29.9 LAB MCHC 30.5-36.0 g/dL MCHC 31.3 LAB RDWCV 11.5-15.0 % RDW-CV 12.9 LAB PLTCT 150-400 k/uL Platelet Count 257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 in the treatment of patients with some cancers and other illnesses. While the actual process of collecting cord blood is straightforward, many parents are not even aware that this option now exists, much less familiar with all the issues involved. The case for saving your baby's cord blood The blood running back and forth between your baby and the placenta is full of immature cells called stem cells. Unlike embryonic stem cells, which have the ability to develop into any type of body cell, cord-blood stem cells already are locked into a certain, vital function: making all the different components of the blood, such as platelets, white blood cells, and red blood cells-serving, in effect, like bone marrow. When transfused into a patient whose own blood cells have faulty genetic coding or have been destroyed by chemotherapy or other cancer treatments, the cord-blood cells can implant themselves in the bone marrow and generate legions of new, healthy cells. These days, cord-blood transplants most commonly are used in cancer patients when a donor can't be found for a bone-marrow transplant. The treatment is particularly effective in young patients-the [facility] Cord Blood Bank reports a 70 percent success rate in children, but only 20 to 40 percent in adults. Researchers envision improving those odds and see many future applications as well, such as curing sickle cell disease and other blood-related genetic illnesses. So there is a possibility that your child, or someone else, may need these super-healthy and versatile cells one day. The drawbacks Aside from not knowing about this medical option, the main reason most people do not save their baby's stem cells is cost. In a private blood bank, the initial costs run from $275 to $1,500. Most also charge a yearly storage fee of $50 to $95. The advantage of using a private bank is that your sample is saved for only you to use. An alternative to private banking Public cord-blood diggs are an alternative. These cost no money to use, but your sample is not specifically saved for you. Another person with a more immediate need may use it. If the time should come that you need stem cells, yours may still be available, or you may use donations from other people without charge. You also can direct your sample to go to a relative with an immediate need if the blood type matches. Anyone else needing to use stem cells from a public bank who has not been a donor must pay for it, sometimes tens of thousands of dollars. Will my family benefit from saving stem cells? Right now, situations in which stem cells would be helpful are quite rare. As mentioned earlier, stem-cell transplants are most commonly used for rare genetic conditions and for some types of cancer, including leukemia and lymphoma. And even with these present uses, many questions remain. In cancer treatment, for example, some researchers are concerned about the wisdom of transplanting back into the child the same cells that already showed a propensity to become malignant. Doctors also aren't sure if the number of cells taken at the time of would be enough to treat a full-grown 16-year-old. It is also not completely clear how active the cells would be after years of being stored. The treatment is so new and rare, we just don't have the data yet to resolve these important issues. What do the experts say? The [employer] encourages philanthropic blood banking in public diggs, but only for families with a current or potential need. Blood-bank proponents encourage any kind of banking, pointing out that research is getting closer and closer to many diverse, live-saving applications. How do I decide? Each family must weigh the pros and cons for themselves. Some families say that any cost is worth their peace of mind. Others say that in the face of uncertainty about the effectiveness of the treatment, they will use their resources elsewhere. Some choose the middle ground of donating publicly, knowing that their sample might benefit another family, if not themselves. For more information, ask your doctor or nurse, and be sure to check out our article on the technical aspects of cord-blood banking. Technical Aspects of Cord-Blood Banking If you are interested in storing your baby's umbilical-cord blood because of its possible use in emerging medical treatments, you must make arrangements with a blood bank before your child is born. The collection procedure is quite simple: After delivery of the baby, the umbilical cord is clamped and cut in the usual way. The blood that remains in the umbilical-cord vessels is then collected in sterile containers. The blood may be removed from the cord with a large needle or allowed to flow freely, depending on the company's collection system. The containers may look like large test tubes or like the plastic bags used in a blood bank. It does not cause the mother or the baby any pain to collect the blood, and no blood is taken that the baby needs at the moment. The nurse, systems administration analyst, or physician will then label the samples, check them over with you, and package them for a special pickup arranged with a commercial carrier. When the blood arrives at the blood-bank facility, it is processed and the parents are notified. It is then kept in an advanced storage system for years. How do I know that my sample is safe? Power outages and bankruptcies potentially could threaten any organization, but so far none have been reported. It is to be hoped that the scientists in these diggs would arrange for safe transfer to another facility if the need arose. YOU MUST MAKE ARRANGEMENTS AHEAD OF TIME! Public cord-blood diggs--DONATION: [employer] [phone] [facility]'s Placental Blood Program, [facility] Umbilical Cord Blood Bank, Private cord-blood diggs--SAVING FOR YOUR OWN USE: [employer], (I think this is the least expensive) [employer] [phone] [employer], ([phone]) [employer] [place] Cord Blood Bank, [phone]-CORD Cells, [phone] [place] Cry[facility]ank, Cord Blood Registry, ([phone]) CORDBLOOD [employer], An Internet search may provide you with additional listings. Referring Provider: SELF [200] Allergies As of Date: 08/03/2017 Noted Allergy Reaction environmental [Other] 07/18/2005 Comments: itchy, watery eyes in summer Date Reviewed: 08/03/2017 Reviewed by: Yarely Chaves RN - Fully Assessed Reason for Visit: Care [86] Cmt: Pre-New OB Primary Visit Diagnosis:Supervision of normal first , antepartum [Z34.00] Other Visit Diagnoses:History of depression [Z86.59] Family history of congenital heart defect [Z82.79] Order(s):MATTHEW PT ED TRAUMA SURGEON [] Order #: [id number]: 1 FUTURE MATTHEW PT ED ANESTHESIA [21181226] Order #: [id number]: 1 FUTURE MATTHEW PT ED TRAUMA SURGEON [] Order #: [id number]: 1 FUTURE MATTHEW WHAT TO EXPECT DURING YOUR HOSPITAL STAY [] Order #: [id number]: 1 FUTURE MATTHEW PT ED TRAUMA SURGEON [] Order #: [id number]: 1 FUTURE MATTHEW PT ED TRAUMA SURGEON [] Order #: [id number]: 1 FUTURE MATTHEW PT ED TRAUMA SURGEON [] Order #: [id number]: 1 FUTURE MATTHEW PT ED TRAUMA SURGEON [] Order #: [id number]. #:[id number]: 1 MATTHEW PT ED ANESTHESIA [[id number]] Order #: [id number]. #:[id number]: 1 MATTHEW PT ED TRAUMA SURGEON [] Order #: [id number]. #:[id number]: 1 MATTHEW WHAT TO EXPECT DURING YOUR HOSPITAL STAY [] Order #: [id number]. #:[id number]: 1 MATTHEW PT ED TRAUMA SURGEON [] Order #: [id number]. #:[id number]: 1 MATTHEW PT ED TRAUMA SURGEON [] Order #: [id number]. #:[id number]: 1 MATTHEW PT ED TRAUMA SURGEON [] Order #: [id number]. #:[id number]: 1 Prescriptions as of 08/03/2017 Sig: VITAMIN,CALCIUM,MINE* Take 1 tablet by mouth. DESOGESTREL 0.15 MG-ETHINYL E* Take 1 tablet by mouth once d* Medication notes this encounter DESOGESTREL 0.15 MG-ETHINYL ESTRADIOL 0.03 MG TABLET >> Yarely Chaves RN 08/03/2017 2:35 PM >> YARELY CHAVES RN [facility] Aug 03, 2017 2:35 PM Pt no longer taking Problem List As Of Date 08/03/2017 Noted Resolved Anal Pruritus [L29.0] INVALID FOR* History of depression [Z86.59] INVALID FOR* More... Family history of congenital heart defect [Z82.*INVALID FOR* More... Other instructions from your clinician: SEQUENTIAL SCREENINGS The [facility] offers sequential screenings for women who are interested in screenings for chromosomal abnormalities and certain defects during a . The sequential screen combines ultrasound and blood tests to determine the risk of chromosomal abnormalities, including Down's Syndrome (Trisomy 21) and Trisomy 18, as well as open neural tube defects including spina bifida. Ultrasound examination is performed between 11 weeks and 13 weeks gestational age. Blood tests are drawn after the ultrasound and again later in the between 15 and 21 weeks gestational age. Please let your physician know if you are interested in this testing. It will require an appointment with our biometric fingerprinting technician. This is not an ultrasound performed by a physician in our office during a routine visit. SIGNS AND SYMPTOMS OF LABOR 1. Contractions every 10 minutes or more often 2. Clear, pink, or brownish fluid (water) leaking from vagina 3. Feeling that baby is pushing down, pressure 4. Low, dull backache 5. Cramps that feel like a period 6. Cramps with or without diarrhea If you notice any of the above symptoms, contact our office at [phone] and ask to speak with a nurse. After hours, you can call [facility] at [phone] OR call [facility] at [phone] and ask to have the doctor addictions counselor paged. If you consider this an emergency, dial 9-1-1 or go to your nearest emergency department. Cord-Blood Banking Up until recently, the umbilical cord--along with the blood that remained in it after a baby was born and the cord cut--was simply discarded by the hospital. Then, in the late 1980s, researchers discovered that cord blood possessed unusual properties that made it useful in the treatment of patients with some cancers and other illnesses. While the actual process of collecting cord blood is straightforward, many parents are not even aware that this option now exists, much less familiar with all the issues involved. The case for saving your baby's cord blood The blood running back and forth between your baby and the placenta is full of immature cells called stem cells. Unlike embryonic stem cells, which have the ability to develop into any type of body cell, cord-blood stem cells already are locked into a certain, vital function: making all the different components of the blood, such as platelets, white blood cells, and red blood cells-serving, in effect, like bone marrow. When transfused into a patient whose own blood cells have faulty genetic coding or have been destroyed by chemotherapy or other cancer treatments, the cord-blood cells can implant themselves in the bone marrow and generate legions of new, healthy cells. These days, cord-blood transplants most commonly are used in cancer patients when a donor can't be found for a bone-marrow transplant. The treatment is particularly effective in young patients- the [facility] Cord Blood [facility] reports a 70 percent success rate in children, but only 20 to 40 percent in adults. Researchers envision improving those odds and see many future applications as well, such as curing sickle cell disease and other blood-related genetic illnesses. So there is a possibility that your child, or someone else, may need these super-healthy and versatile cells one day. The drawbacks Aside from not knowing about this medical option, the main reason most people do not save their baby's stem cells is cost. In a private blood bank, the initial costs run from $275 to $1,500. Most also charge a yearly storage fee of $50 to $95. The advantage of using a private bank is that your sample is saved for only you to use. An alternative to private banking Public cord-blood diggs are an alternative. These cost no money to use, but your sample is not specifically saved for you. Another person with a more immediate need may use it. If the time should come that you need stem cells, yours may still be available, or you may use donations from other people without charge. You also can direct your sample to go to a relative with an immediate need if the blood type matches. Anyone else needing to use stem cells from a public bank who has not been a donor must pay for it, sometimes tens of thousands of dollars. Will my family benefit from saving stem cells? Right now, situations in which stem cells would be helpful are quite rare. As mentioned earlier, stem-cell transplants are most commonly used for rare genetic conditions and for some types of cancer, including leukemia and lymphoma. And even with these present uses, many questions remain. In cancer treatment, for example, some researchers are concerned about the wisdom of transplanting back into the child the same cells that already showed a propensity to become malignant. Doctors also aren't sure if the number of cells taken at the time of would be enough to treat a full-grown 16-year-old. It is also not completely clear how active the cells would be after years of being stored. The treatment is so new and rare, we just don't have the data yet to resolve these important issues. What do the experts say? The [employer] encourages philanthropic blood banking in public diggs, but only for families with a current or potential need. Blood-bank proponents encourage any kind of banking, pointing out that research is getting closer and closer to many diverse, live-saving applications. How do I decide? Each family must weigh the pros and cons for themselves. Some families say that any cost is worth their peace of mind. Others say that in the face of uncertainty about the effectiveness of the treatment, they will use their resources elsewhere. Some choose the middle ground of donating publicly, knowing that their sample might benefit another family, if not themselves. For more information, ask your doctor or nurse, and be sure to check out our article on the technical aspects of cord-blood banking. Technical Aspects of Cord-Blood Banking If you are interested in storing your baby's umbilical- cord blood because of its possible use in emerging medical treatments, you must make arrangements with a blood bank before your child is born. The collection procedure is quite simple: After delivery of the baby, the umbilical cord is clamped and cut in the usual way. The blood that remains in the umbilical-cord vessels is then collected in sterile containers. The blood may be removed from the cord with a large needle or allowed to flow freely, depending on the company's collection system. The containers may look like large test tubes or like the plastic bags used in a blood bank. It does not cause the mother or the baby any pain to collect the blood, and no blood is taken that the baby needs at the moment. The nurse, systems administration analyst, or physician will then label the samples, check them over with you, and package them for a special pickup arranged with a commercial carrier. When the blood arrives at the blood- bank facility, it is processed and the parents are notified. It is then kept in an advanced storage system for years. How do I know that my sample is safe? Power outages and bankruptcies potentially could threaten any organization, but so far none have been reported. It is to be hoped that the scientists in these diggs would arrange for safe transfer to another facility if the need arose. YOU MUST MAKE ARRANGEMENTS AHEAD OF TIME! Public cord-blood diggs--DONATION: [employer] [phone] [facility]'s Placental Blood Program, [facility] Umbilical Cord Blood Bank, Private cord-blood diggs--SAVING FOR YOUR OWN USE: [employer], (I think this is the least expensive) [employer] [phone] [employer], [phone]) [employer] [place] Cord Blood [facility], [phone]-CORD Cells, [phone] [place] Cryobank, Cord Blood Registry, [phone]) CORDBLOOD [employer], An Internet search may provide you with additional listings. Disposition: Return in 8 days (on 08/11/2017) for New OB with Dr Villeda. Follow-up and Disposition History Recorded Letter Text Dear Kelly Kang: How to activate your [facility] [employer] Account 1. Visit the [employer] Signup page at [email or web address] 2. Identify yourself using your one-time use activation code: [email or web address] 3. Follow the on-screen prompts to choose your own secure username and password The following information will be necessary to access your account for the first time: Information needed for sign-up: Your custom activation code used one-time only for the initial account set-up. Your date of The last 4 digits of your social security number What to do next: Fill in the requested information on the Identify Yourself Form at [email or web address] , click Next. Create your login and password, choose a [employer] ID and password that will be easy for you to use, but impossible for anyone else to guess. Pick a security question that will assist you in the event you forget your password the next time you log-on. If you have difficulty activating your account, please call our [employer] helpline at [phone] or toll free at . We hope you enjoy using [employer]! Kindest Regards, [facility] [employer] Team Encounter Status:Closed by YARELY CHAVES RN on 08/03/17 LIPID PROFILE Collected: 05/10/2017 Status: F Source: [place] 9:10 AM [facility] REPOSITORY TYPE CODE TESTS RESULT OUT OF RANGE REFERENCE UNITS LAB L501.4900 200 mg/dL Normal CHOL 158 Result Comment: <200 mg/dL Desirable 200-240 mg/dL Borderline >240 mg/dL High Risk LAB L501.5000 mg/dL Normal TRIG 34 Result Comment: The drugs N-Acetylcysteine and Metamizole may falsely depress this assay. Serum Triglycerides Reference Interval Normal <150 mg/dL Borderline high 150 - 199 mg/dL High 200 - 499 mg/dL Very High > or = 500 mg/dL LAB L501.6400 mg/dL Normal HDL 63 Result Comment: The drugs N-Acetylcysteine and Metamizole may falsely depress this assay. Reference Range HDL <40 mg/dL Low HDL Cholesterol HDL >or= 60 mg/dL High HDL Cholesterol LAB L501.6500 0-130 mg/dL Normal LDL 88 LAB L501.6600 5-40 mg/dL Normal VLDL 7 Performed By: #### L500.4100, L501.0100 #### [facility] [address] [place], [address] GLUCOSE Collected: 05/10/2017 Status: F Source: [place] 9:10 AM [facility] REPOSITORY TYPE CODE TESTS RESULT OUT OF RANGE REFERENCE UNITS LAB L501.0100 70-110 mg/dL Normal GLU 78 Performed By: #### L500.4100, L501.0100 #### [facility] [address] [place], [address] ALLERGIES ALLERGIES DATE TYPE / CODE NAME / CODE REACTION SEVERITY SOURCE 03/08/2018 Drug No Known Unknown [place] Allergy/[id number](S Allergies/F Community NOMED CT) [id number]([facility] XNORM) Repository 07/18/2005 Miscellaneous OTHER [facility] Allergy/[id number]([facility] NOMED CT) Repository ENCOUNTERS ENCOUNTERS ADMIT/DISCHARGE ACCOUNT ADMITTING ENCOUNTER LOCATION SOURCE NUMBER CLASS 05/02/2018/05/02/19 [id number] Ambulatory [address] Repository 04/13/2018/04/16/19 [id number] Ambulatory [address] Repository 03/28/2018/03/29/20 [id number] Ambulatory [place] [facility] [place] Repository 03/27/2018/03/27/20 [id number] Emergency [place] 18 [facility] ing:ED Repository 03/14/2018/03/16/20 [id number] [place], Inpatient [place] 18 [place] Encounter [facility] ing:WPRoom: Repository [id number]: 1 03/09/2018/03/15/20 [id number] Ambulatory [address] [place] Repository 03/08/2018/03/08/20 [id number] Ambulatory [facility]:B [place] 18 [facility] Repository 03/02/2018/03/05/20 [id number] Ambulatory [address] [place] Repository 02/24/2018/02/25/20 [id number] [facility] ing:ED Repository 02/20/2018/02/22/20 [id number] Ambulatory [place] 18 [facility] [place] Repository 02/05/2018/02/07/20 [id number] Ambulatory [address] [place] Repository 01/23/2018/01/25/20 [id number] Ambulatory [address] [place] Repository 01/09/2018/01/10/20 [id number] Ambulatory [place] 18 [facility] [place] Repository 01/09/2018/01/12/20 [id number] Ambulatory [place] 18 [facility] [place] Repository 12/12/2017/12/15/19 [id number] Ambulatory [place] 18 [facility] [place] Repository 11/14/2017/11/16/19 [id number] Ambulatory [place] [facility] Main [place] Repository 10/27/2017/11/01/19 [id number] Ambulatory [place] [facility] [place] Repository 10/23/2017 [id number] Ambulatory [facility] ing:OLS.EH Repository 10/16/2017/10/17/19 [id number] Ambulatory [place] 18 [facility] Main [place] Repository 10/16/2017/10/18/19 [id number] Ambulatory [place] 18 [facility] Main [place] Repository 09/19/2017 [id number] Ambulatory [facility] Main [place] Repository 09/19/2017/09/20/19 [id number] Ambulatory [address] Repository 09/19/2017/09/23/19 [id number] Ambulatory [address] Repository 08/11/2017/08/16/19 [id number] Ambulatory [address] Repository 08/03/2017/08/08/19 [id number] Ambulatory [address] Repository 05/10/2017 [id number] Ambulatory [place] [facility] ing:[facility] Repository PAYERS PAYERS ENCOUNTER GUARANTOR PAYER SUBSCRIBER SOURCE 03/27/2018 KELLY A [id number] Primary KELLY A Sushant PERRY Insurance:AETNAPolicy PLANTDOB: [facility], [facility]: [id number] [address]Nmx: [id number] Repository Date:[id number] BOX (QX) [id number] VANESA COLLAZO [phone]: 03/27/2018 Secondary NOT GIVENUNK Sushant Insurance:SELF PAY [facility] Number: Effective Repository Date:2018-03-27 03/14/2018 KELLY A [id number] Primary KELLY A Sushant PERRY Insurance:AETNAPolicy PLANTDOB: [facility], Number: [id number] [address]Nao: [id number] Repository Date:[id number] BOX () [id number] VANESA COLLAZO [phone]: 03/14/2018 Secondary NOT GIVENUNK Sushant Insurance:SELF PAY [facility] Number: Effective Repository Date:2018-03-14 03/08/2018 KELLY A [id number] Primary KELLY A [place] PERRY Insurance:AETNAPolicy PLANTDOB: [facility], Number: [id number] [address]Pjw: [id number] Repository Date:0497-53-19JS BOX () [id number] VANESA COLLAZO [phone]: 03/08/2018 Secondary NOT GIVENUNK [place] Insurance:SELF PAY [facility] Number: Effective Repository Date:2018-03-08 02/24/2018 KELLY [place] [id number] Primary KELLY [place] PERRY Insurance:AETNAMario PLANTDOB: [facility], Number: [id number] [address]Mek: [id number] Repository Date:5760-00-74AT BOX (KG) [id number] VANESA COLLAZO [phone]: 02/24/2018 Secondary NOT GIVENUNK [place] Insurance:SELF PAY [facility] Number: Effective Repository Date:2018-02-24 10/23/2017 Primary NOT GIVENUNK [place] Insurance:SELF PAY [facility] Number: Effective Repository Date:2017-10-23 05/10/2017 Primary NOT GIVENUNK Sushant Insurance:SELF PAY [facility] Number: Effective Repository Date:2017-05-10
== END 2018-03-27 05:52 | disposition home or self-care (01) ==
LOC: ED 09:42
PROVIDERS: Emergency Provider Emergency Medicine
DX: O72.2 Delayed and secondary postpartum hemorrhage (principal)
CPT/HCPCS: 76856; 80053; 85025; 99283

== ENCOUNTER 2019-06-23 15:13 | Emergency (ER) | payer OTHER, SELFPAY ==
[2019-06-20 16:17] VITALS: BMI 28.6
[2019-06-23 15:15] VITALS: BP 94/60; PULSE 133; RESP 16; TEMP 37.7; O2SAT 95; BMI 21.3
--- NOTE | 2019-06-23 15:38 | ED.DCSUM_ITS ---
History of Present Illness Chief Complaint: Shortness of Breath Detail of Chief Complaint: Cough, fever, body aches Informant: Patient, Significant Other Onset: Days - 4 days Context: Gradual Onset Current Severity: Moderate Maximum Severity: Moderate Narrative: Patient presents with 4 days of URI symptoms. She states she became ill on with body aches and fever. She was seen at the urgent care that day. Because her recently had influenza she was presumed to be influenza positive and given a prescription for Tamiflu. Patient states they were not able to afford the prescription. She is been taking Tylenol for her symptoms. Yesterday her symptoms worsened with increased cough, shortness of breath, and some chest tightness. She states her fever worsened. Temperature today was 102.4. She took Tylenol at 1030 this morning. She reports decreased p.o. intake. Past Medical History - Allergies and Home Meds Allergies/Adverse Reactions: Allergies No Known Allergies Allergy (Verified 06/23/19 15:14) Primary Care Physician: Care Physician,No Primary [Primary Care Provider] - Past Medical History: None Lives: With Family Smoking Status: Never smoker Review of Systems General: Reports: Chills, Fever Eyes: Denies: Visual changes - bilaterally ENT: Denies: Bilateral ear pain Cardiovascular: Reports: Chest pain Respiratory: Reports: Dyspnea, Cough Gastrointestinal: Reports: - - Decreased appetite. Denies: Abdominal pain, Nausea, Vomiting, Diarrhea Genitourinary: Denies: Dysuria Musculoskeletal: Denies: Swelling, Extremity Pain Skin: Denies: Rash Neurological: Reports: Headache, Weakness Hematologic: Denies: Easy bruising Allergy: Denies: Uticaria Physical Exam Vital Signs/Narrative: Vital Signs Temp Pulse Resp BP Pulse Ox 06/23/19 15:15 99.9 F H 133 H 16 94/60 95 Inital Vital Signs reviewed: Yes General: Well nourished, Well developed Head: Normocephalic Eyes: Perrl ENT: Dry mucous membranes Neck: Supple Cardiovascular: Tachycardia Respiratory: No distress, CTA bilaterally Abdomen: Soft, Nontender, Hypoactive bowel sounds Skin: Normal color Neurological: Alert, Normal Strength, Normal Sensation, - - No focal deficits. Psychological: - - Flat affect Diagnostic/Tx/Re-eval Impressions Chest X-Ray 06/23/19 15:51 IMPRESSION: Retrograde capacity, unclear etiology, possibly early pneumonia. Recommend repeat dedicated view including lateral. Electronically Signed: Kaylie Centeno, at 16:14 EDT Tel , Service support , 06/23/19 15:51 Chest 1 View (Portable) [RAD] Stat 06/23/19 15:59 Mucosa - Nose Influenza Types A,B Direct FA ([facility]) - Final Laboratory Results 06/23/19 06/23/19 06/23/19 16:00 16:00 16:00 WBC 9.3 RBC 4.43 Hgb 12.8 Hct 38.1 MCV 86.0 MCH 28.9 MCHC 33.6 RDW Std Deviation 36.9 RDW Coeff of Maggie 11.7 Plt Count 178 MPV 9.0 Immature Gran % (Auto) 0.300 Neut % (Auto) 83.1 H Lymph % (Auto) 6.5 L [place] % (Auto) 8.5 Eos % (Auto) 1.5 Baso % (Auto) 0.1 Absolute Neuts (auto) 7.7 Absolute Lymphs (auto) 0.60 L Nucleated RBC % 0 Differential Comment SCANNED Sodium 134 L Potassium 3.2 L Chloride 100 Carbon Dioxide 27.0 Anion Gap 7 BUN 10 Creatinine 0.99 Estim Creat Clear Calc 68.73 Est GFR (MDRD) Af Amer 84 Est GFR (MDRD) Non-Af 69 BUN/Creatinine Ratio 10.1 Glucose 101 Lactic Acid 1.1 Calcium 8.4 L Serum , Qual 06/23/19 16:00 WBC RBC Hgb Hct MCV MCH MCHC RDW Std Deviation RDW Coeff of Maggie Plt Count MPV Immature Gran % (Auto) Neut % (Auto) Lymph % (Auto) [place] % (Auto) Eos % (Auto) Baso % (Auto) Absolute Neuts (auto) Absolute Lymphs (auto) Nucleated RBC % Differential Comment Sodium Potassium Chloride Carbon Dioxide Anion Gap BUN Creatinine Estim Creat Clear Calc Est GFR (MDRD) Af Amer Est GFR (MDRD) Non-Af BUN/Creatinine Ratio Glucose Lactic Acid Calcium Serum , Qual NEGATIVE - Medical Decision Making Patient is given Toradol, IV fluids, and Tylenol. On repeat evaluation fevers improved. Her appetite is improved and she is able tolerate p.o. here. Test results are discussed with patient and at bedside. She is positive for influenza B. She is outside the 48-hour window for Tamiflu to be beneficial. She will continue Tylenol. I encouraged using ibuprofen as well along with increasing fluids. There is no evidence of pneumonia on chest x-ray. ED Disposition - Plan for ED Patient: Disposition: Home or Assisted Living Diagnosis: Influenza Instructions: INFLUENZA (Adult) Referrals: Ruthy Raphael DO [STAFF PHYSICIAN] - As Needed
--- NOTE | 2019-06-23 15:51 | RAD_ITS ---
STUDY: X-RAY CHEST REASON FOR EXAM: Female, 28 years old. fever, cough, shortness of breath, body aches TECHNIQUE: Frontal view of the chest COMPARISON: None. FINDINGS: There is a subtle retrocardiac opacity. The rest of the lungs are clear. There is no pneumothorax, pulmonary edema, pleural effusions or cardiomegaly. RAD/Chest 1 View (Portable) IMPRESSION: Retrograde capacity, unclear etiology, possibly early pneumonia. Recommend repeat dedicated view including lateral. Electronically Signed: Kaylie Centeno, at 16:14 EDT Tel , Service support ,
[2019-06-23] MEDS: 0.9% Normal Saline 1,000 ML 1000 ML IV (15:54)
[2019-06-23] MEDS: Ketorolac 30 MG/ML Syringe IV (15:55)
[2019-06-23] MEDS: Acetaminophen 500 MG Tablet 1000 MG PO (15:55)
[2019-06-23 16:00] VITALS: TEMP 38.8
[2019-06-23 16:07] LABS: Absolute Neutrophil Count 7.7 X10^3/uL (2.0-7.7); Basophil# 0.01 X10^3/uL; Basophil% 0.1 % (0-1); Eosinophil# 0.14 X10^3/uL; Eosinophils% 1.5 % (0-5); Hematocrit 38.1 % (37-47); Hemoglobin 12.8 g/dL (12.0-15.0); Lymphocyte % 6.5 % (19-41); Mean Corp Hgb Conc 33.6 g/dL (32-36); Mean Corpuscular Hgb 28.9 pg (27.0-32.0); Monocyte# 0.79 X10^3/uL; Monocyte% 8.5 % (0-10); NRBC Flagged by Analyzer 0 % (0-5); Neutrophil # 7.73 X10^3/uL (2.7-7.7); Neutrophil % 83.1 % (47-70); POSITIVE DIFFERENTIAL YES; POSITIVE MORPHOLOGY YES; Platelet Count 178 K/mm3 (150-450); RBC Distribution Width CV 11.7 % (11.6-14.6); RBC Distribution Width SD 36.9 fl (35.1-43.9); Red Blood Count 4.43 M/mm3 (4.2-5.4); White Blood Count 9.3 K/mm3 (4.4-11.0)
[2019-06-23 16:14] LABS: Differential Indicated SCAN CRITERIA MET
[2019-06-23 16:27] LABS: Differential Comment SCANNED
[2019-06-23 16:33] LABS: Anion Gap 7 (5-15); BUN 10 mg/dL (7-18); BUN/Creat Ratio 10.1 RATIO (10-20); Calcium,Total 8.4 mg/dL (8.5-10.1); Chloride 100 mmol/L (98-107); Creatinine, Serum 0.99 mg/dL (0.55-1.02); EST Glomerular Filtration Rate 69 mL/min (>60); Est Glom Filt Rate - Afr Amer 84 mL/min (>60); Estimated Creatinine Clearance 68.73 ml/min; Glucose 101 mg/dL (74-106); Potassium 3.2 mmol/L (3.5-5.1); Sodium Level 134 mmol/L (136-145)
[2019-06-23 16:42] LABS: Lactic Acid 1.1 mmol/L (0.4-1.9)
[2019-06-23 16:45] LABS: Internal QC Validated? YES +Cl - CLEAR BKGD; Pregnancy, Serum, hCG Quali. NEGATIVE Negative
[2019-06-23 17:10] VITALS: BP 95/64; PULSE 101; RESP 18; TEMP 37.3; O2SAT 97
[2019-06-23] MEDS: 0.9% Normal Saline 1,000 ML 150 ML IV (17:12)
[2019-06-23 18:05] VITALS: BP 93/60; PULSE 93; RESP 18; O2SAT 94
== END 2019-06-23 18:06 | disposition home or self-care (01) ==
PROVIDERS: Emergency Provider Emergency Medicine
DX: J10.1 Influenza due to other identified influenza virus with other respiratory manifestations (principal)
CPT/HCPCS: 36415; 71045; 80048; 83605; 84703; 85025; 87040; 87804; 96361; 96374; 99285; J7030; A4216

== ENCOUNTER → 2019-11-04 13:46 | Outpatient (CLI) | payer OTHER, SELFPAY ==
[2019-11-04 13:31] VITALS: BMI 21.3
[2019-11-04 15:11] LABS: hCG Titer Quant., Serum 3240 mIU/mL (1-3)
== END ==
PROVIDERS: Referring Provider Nurse Practitioner Women's Health; Visit Provider Nurse Practitioner Women's Health
DX: N91.2 Amenorrhea, unspecified (principal)
CPT/HCPCS: 36415; 84702

== ENCOUNTER → 2019-11-06 16:19 | Outpatient (CLI) | payer OTHER, SELFPAY ==
[2019-11-04 13:31] VITALS: BMI 21.3
--- NOTE | 2019-11-06 16:20 | US_ITS ---
STUDY: FIRST TRIMESTER OBSTETRICAL ULTRASOUND REASON FOR EXAM: Female, 29 years old DATING estimation of age. LMP: 08/28/2019/estimated TECHNIQUE: Transvaginal real-time exam with grayscale image documentation. TECHNICAL QUALITY: Adequate. PRIOR ULTRASOUND: None. FINDINGS: There is visualization of a single gestational sac in a normal intrauterine position. The mean sac diameter (MSD) measures 0.72 cm, indicating an estimated gestational age (EGA) of 5 weeks, 2 days. The gestational sac shape is within normal limits. There is a visualized yolk sac. The yolk sac measures 1.5 mm. The placenta is not visualized secondary to IVORY gestational age. There is no demonstrated embryo ( pole). The estimated gestation age (EGA) by LMP is 10 weeks, 0 days. The estimated date of delivery (SUPRIYA) by LMP is 06/03/2020. The estimated gestation age (EGA) by US is 5 weeks, 2 days. The estimated date of delivery (SUPRIYA) by US is 07/06/2020. The retroverted uterus measures 6.8 x 4.9 x 3.9 cm. There is no demonstrated uterine fibroid. The cervix is closed. The right ovary measures 4.1 x 2.9 x 1.7. 1.3 x 1.2 x 0.8 cm. Flow is present but subjectively low flow. The left ovary measures 3.9 x 3.4 x 2.4 cm. There is a 2.2 x 2.5 x 1.6 cm complex cyst of the left ovary. There is no visualized left adnexal mass or complex lesion. There is no fluid in the cul de sac. US/Init OB < 14Wks US IMPRESSION: Single intrauterine gestational sac measuring 5 weeks and 2 days without a visualized pole. Yolk sac is present. 1.3 x 1.2 x 0.8 cm cyst of the right ovary. DOPPLER exam demonstrates flow to the right ovary which appears to be subjectively reduced. 2.2 x 2.5 x 1.6 cm complex cyst of the left ovary. Normal DOPPLER flow of the left ovary. No additional adnexal masses. No free fluid. Electronically Signed: Yessy Wood MD at 17:05 EDT , Service support ,
== END ==
PROVIDERS: Referring Provider Obstetrics & Gynecology; Visit Provider Obstetrics & Gynecology
DX: Z36.87 Encounter for antenatal screening for uncertain dates (principal)
CPT/HCPCS: 76801

== ENCOUNTER → 2019-11-20 12:54 | Outpatient (CLI) | payer OTHER, SELFPAY ==
[2019-11-04 13:31] VITALS: BMI 21.3
--- NOTE | 2019-11-20 12:55 | US_ITS ---
STUDY: FIRST TRIMESTER OBSTETRICAL ULTRASOUND REASON FOR EXAM: Female, 29 years old viability LMP: 08/28/2019. TECHNIQUE: Transvaginal TECHNICAL QUALITY: Adequate. PRIOR ULTRASOUND: Comparison is made with prior study dated 11/06/2019. FINDINGS: There is visualization of a single gestational sac in a normal intrauterine position. The mean sac diameter (MSD) measures 2.22 cm, indicating an estimated gestational age (EGA) of 7 weeks, 2 days. The gestational sac shape is within normal limits. There is a visualized yolk sac. The yolk sac measures 6 mm. The placenta is non-visualized. There is visualization of a live embryo. The crown-rump length (CRL) measures 9.1 mm, indicating an estimated gestational age (EGA) of 7 weeks, 0 days. There is demonstrated cardiac activity with a heart rate of 134 bpm. The estimated gestation age (EGA) by LMP is 12 weeks, 0 days. The estimated date of delivery (SUPRIYA) by LMP is 06/03/2020. The estimated gestation age (EGA) by US is 7 weeks, 1 days. The estimated date of delivery (SUPRIYA) by US is 07/07/2020. The uterus measures 7.6 cm x 6.7 cm x 5.8 cm. There is no demonstrated uterine fibroid. The cervix is closed. The right ovary measures 3.5 cm x 1.4 cm x 2.1 cm. There is no right ovarian cyst. There is no visualized right adnexal mass or complex lesion. The left ovary measures 2.9 cm x 2.9 cm x 2.3 cm. There is a 1.2 cm x 2.4 cm x 1.2 cm cyst in the left ovary. There is no visualized left adnexal mass or complex lesion. There is no fluid in the cul de sac. US/Init OB < 14Wks US IMPRESSION: Single live intrauterine gestation with a mean gestational age of 7 weeks and 1 day. 1.2 cm x 2.4 cm x 1.2 cm left ovarian cyst. Electronically Signed: Mich Fuentes, at 15:11 EDT , Service support ,
== END ==
PROVIDERS: Referring Provider Obstetrics & Gynecology; Visit Provider Obstetrics & Gynecology
DX: Z34.90 Encounter for supervision of normal pregnancy, unspecified, unspecified trimester (principal)
CPT/HCPCS: 76801

== ENCOUNTER → 2019-11-27 | Outpatient (CLI) | payer OTHER, SELFPAY ==
[2019-11-27 13:59] VITALS: BMI 21.3
[2019-11-27 18:29] LABS: Amphetamine Urine VISTA NEGATIVE (<1000 ng/mL); Barbiturate Urine VISTA NEGATIVE (< 200 ng/mL); Benzodiazepine Urine VISTA NEGATIVE (< 200 ng/mL); Cocaine Urine VISTA NEGATIVE (< 300 ng/mL); Ecstacy Urine VISTA NEGATIVE (< 500 ng/mL); Methadone Urine VISTA NEGATIVE (< 300 ng/mL); PCP Urine VISTA NEGATIVE (< 25 ng/mL); THC Urine VISTA NEGATIVE (< 50 ng/mL); Vista UDS pH Range 6
[2019-11-30 03:07] LABS: Chlamydia By Nucleic Acid AMP Negative (Negative)
[2019-11-30 07:32] LABS: Gonococcus By Nucleic Acid AMP Negative (Negative)
== END | disposition home or self-care (01) ==
LOC: LABSPEC 17:13
PROVIDERS: Referring Provider Obstetrics & Gynecology; Visit Provider Obstetrics & Gynecology
DX: Z34.90 Encounter for supervision of normal pregnancy, unspecified, unspecified trimester (principal)
CPT/HCPCS: 80307; 87086; 87491; 87591

== ENCOUNTER → 2019-12-11 13:00 | Outpatient (CLI) | payer OTHER, SELFPAY ==
[2019-11-27 13:59] VITALS: BMI 21.3
[2019-12-11 13:32] LABS: Absolute Lymphocyte Count 1.85 X10^3/uL (0.83-4.51); Absolute Neutrophil Count 6.4 X10^3/uL (2.0-7.7); Basophil# 0.04 X10^3/uL; Basophil% 0.4 % (0-1); Eosinophil# 0.22 X10^3/uL; Eosinophils% 2.4 % (0-5); Hematocrit 35.3 % (37-47); Hemoglobin 11.7 g/dL (12.0-15.0); Lymphocyte # 1.85 X10^3/ul (4.0); Lymphocyte % 20.2 % (19-41); Mean Corp Hgb Conc 33.1 g/dL (32-36); Mean Corpuscular Hgb 28.7 pg (27.0-32.0); Mean Corpuscular Volume 86.7 fL (81-99); Mean Platelet Vol. 8.8 fl (6.2-12.0); Monocyte# 0.58 X10^3/uL; Monocyte% 6.3 % (0-10); NRBC Flagged by Analyzer 0 % (0-5); Neutrophil # 6.43 X10^3/uL (2.7-7.7); Neutrophil % 70.5 % (47-70); Platelet Count 297 K/mm3 (150-450); RBC Distribution Width CV 11.7 % (11.6-14.6); Red Blood Count 4.07 M/mm3 (4.2-5.4); White Blood Count 9.1 K/mm3 (4.4-11.0)
[2019-12-11 14:54] LABS: HIV - WCH Non-Reactive (Nonreactive); Hepatitis B Surface Antigen Non-Reactive (Nonreactive); Hepatitis C Antibody Non-Reactive (Nonreactive); Rubella IgG 123.4 IU/mL
[2019-12-12 06:29] LABS: Rapid Plasmin Reagin (RPR) NONREACTIVE (NONREACTIVE)
== END ==
PROVIDERS: Referring Provider Obstetrics & Gynecology; Visit Provider Obstetrics & Gynecology
DX: Z34.80 Encounter for supervision of other normal pregnancy, unspecified trimester (principal)
CPT/HCPCS: 36415; 85025; 86592; 86703; 86762; 86803; 86850; 86900; 86901; 87340

== ENCOUNTER → 2020-02-12 16:01 | Outpatient (CLI) | payer OTHER, SELFPAY ==
[2019-12-25 14:33] VITALS: BMI 21.3
[2020-01-21 14:26] VITALS: BMI 23.8
--- NOTE | 2020-02-12 16:02 | US_ITS ---
STUDY: SECOND AND THIRD TRIMESTER OBSTETRICAL ULTRASOUND REASON FOR EXAM: Female, 29 years old ANATOMY LMP: 10/02/2019 TECHNIQUE: Transabdominal TECHNICAL QUALITY: Adequate. PRIOR ULTRASOUND: None. FINDINGS: There is a single intrauterine fetus. The fetus is in a breech presentation. There is demonstrated cardiac activity with a heart rate of 143 bpm. There is a normal amniotic fluid volume. The largest amniotic fluid pocket measures 4.7 cm. The placenta is anterior in location and is not low lying. There are Grade 0 placental changes. The cervix measures 6.4 cm in length. The adnexal regions are not visualized. BIOMETRY: BPD: 4.0: 18 weeks, 1 days HC: 16.0: 18 weeks, 5 days AC: 15.0: 20 weeks, 1 days FL: 2.9: 18 weeks, 6 days CI: FL/BPD: FL/HC: FL/AC: HC/AC: age by current US: 18 weeks, 5 days. SUPRIYA by current US: 07/10/2020. Estimated weight: 296 grams, +/- 44 grams, 74 %. age by prior US: weeks, days. SUPRIYA by prior US: . Age by LMP: 19 weeks, 0 days. SUPRIYA by LMP: 07/08/2020. ANATOMY: Gender: Cranium: Normal lateral ventricles. Normal choroid plexus. Normal cerebellum. Normal cisterna magna. Normal face, nose and lips. Chest: Normal 4-chamber heart. Abdomen/Pelvis: Normal diaphragm. Normal stomach. Normal abdominal wall. Normal cord insertion. Normal 3 vessel cord. Normal kidneys. Normal bladder. Spine: Normal cervical spine. Normal thoracic spine. Normal lumbar spine. Normal sacrum. Extremities: Normal bilateral upper extremities. Normal bilateral lower extremities. US/OB Anatomy Scan IMPRESSION: Single live fetus in a breech presentation. No demonstrated anatomic abnormality. Placenta is grade 0 and is not low-lying. Cervix is closed. age by current US: 18 weeks, 5 days. SUPRIYA by current US: 07/10/2020. Estimated weight: 296 grams, +/- 44 grams, 74 %. Electronically Signed: Marvin Prescott MD at 22:54 EST , Service support ,
== END ==
PROVIDERS: Referring Provider Obstetrics & Gynecology; Visit Provider Obstetrics & Gynecology
DX: Z34.80 Encounter for supervision of other normal pregnancy, unspecified trimester (principal)
CPT/HCPCS: 76805

== ENCOUNTER → 2020-04-13 10:02 | Outpatient (CLI) | payer MEDICAID, SELFPAY ==
[2020-03-18 10:31] VITALS: BMI 25.9
[2020-04-13 10:32] LABS: Absolute Lymphocyte Count 1.78 X10^3/uL (0.83-4.51); Absolute Neutrophil Count 9.4 X10^3/uL (2.0-7.7); Basophil# 0.07 X10^3/uL; Basophil% 0.5 % (0-1); Eosinophil# 0.52 X10^3/uL; Hematocrit 33.5 % (37-47); Hemoglobin 11.2 g/dL (12.0-15.0); Lymphocyte # 1.78 X10^3/ul (4.0); Lymphocyte % 13.8 % (19-41); Mean Corp Hgb Conc 33.4 g/dL (32-36); Mean Corpuscular Hgb 29.6 pg (27.0-32.0); Mean Corpuscular Volume 88.6 fL (81-99); Mean Platelet Vol. 8.6 fl (6.2-12.0); Monocyte# 0.94 X10^3/uL; Monocyte% 7.3 % (0-10); NRBC Flagged by Analyzer 0 % (0-5); Neutrophil # 9.35 X10^3/uL (2.7-7.7); Neutrophil % 72.8 % (47-70); Platelet Count 264 K/mm3 (150-450); RBC Distribution Width CV 12.2 % (11.6-14.6); RBC Distribution Width SD 39.8 fl (35.1-43.9); Red Blood Count 3.78 M/mm3 (4.2-5.4); White Blood Count 12.9 K/mm3 (4.4-11.0)
[2020-04-13 10:49] LABS: Glucose Challenge Gest 1H 50g 97 mg/dL (70-140)
== END ==
PROVIDERS: Referring Provider Obstetrics & Gynecology; Visit Provider Obstetrics & Gynecology
DX: Z34.80 Encounter for supervision of other normal pregnancy, unspecified trimester (principal); Z13.1 Encounter for screening for diabetes mellitus
CPT/HCPCS: 36415; 82950; 85025

== ENCOUNTER 2020-04-24 11:50 | Outpatient (CLI) | payer MEDICAID, SELFPAY ==
[2020-04-13 11:03] VITALS: BMI 26.4
[2020-04-24 12:08] VITALS: BMI 26.9
[2020-04-24 12:38] VITALS: BP 97/54; PULSE 94
[2020-04-24 12:40] VITALS: PULSE 94; TEMP 37.1; O2SAT 98
--- NOTE | 2020-04-24 12:56 | EKG12_ITS ---
Test Reason : SOB Blood Pressure : / mmHG Vent. Rate : 082 BPM Atrial Rate : 082 BPM P-R Int : 134 ms QRS Dur : 074 ms QT Int : 356 ms P-R-T Axes : 041 063 032 degrees QTc Int : 415 ms Normal sinus rhythm Normal ECG No previous ECGs available Confirmed by DARLEEN MERCHANT, NETTIE ([id number]), restaurant expeditor AMADOU AYALA ([id number]) on 04/30/2020 2:35:41 PM Referred By: Rosalba Morrison Confirmed By:NETTIE MOREJON MD
[2020-04-24 13:18] LABS: Mucous, Urine 0 SEEN /hpf (<or=2+)
[2020-04-24 13:31] LABS: Color, Urine Yellow (Yellow); Glucose, Dipstick Normal (Normal); Ketone-Dipstick Negative (Negative); Leukocyte Esterase-Dipstick 500 /ul (Negative); Nitrite-Dipstick Negative (Negative); Occult Blood-Urine 150 /ul (Negative); Protein-Dipstick Negative (Negative); Urine Bilirubin Dipstick Negative (Negative); Urine Clarity Sl. Cloudy (Clear); Urine Urobilinogen Normal (Normal); Urine pH 6.5 (5.0 - 8.0)
[2020-04-24 13:41] LABS: Bacteria 1+ /hpf (None Seen); Red Blood Cells-Urine 10-25 SEEN /hpf (0-5); Squamous Epithelial Cells - UA 0-5 SEEN /hpf (5-10); White Blood Cells 25-50 SEEN /hpf (0-5)
--- NOTE | 2020-04-26 20:00 | OB.TRI.PN ---
Progress Notes Date of Service: 04/26/20 Progress Note: Patient presents for triage evaluation secondary to small vaginal bleeding, shortness of breath chronic FHT: 130 Moderate variability reactive no decelerations category I tracing [place]: no regular Contractions Assessment and plan: cervix closed no visible blood, was only in toilet when she wiped, EKG for shortness of breath she has an appointment with cardiology for evaluation. Reactive NST, reassuring maternal and status patient discharged to home to follow-up as scheduled. See problem list details for additional plan information. Laboratory Studies: Laboratory Tests 04/24/20 Range/Units 13:00 Urine Color Yellow (Yellow) Urine Clarity Sl. Cloudy (Clear) Urine pH 6.5 (5.0 - 8.0) Ur Specific [place] 1.010 (1.002-1.030) Urine Protein Negative (Negative) mg/dl Urine Glucose (UA) Normal (Normal) mg/dl Urine Ketones Negative (Negative) mg/dl Urine Occult Blood 150 H (Negative) /ul Urine Nitrite Negative (Negative) Urine Bilirubin Negative (Negative) mg/dL Urine Urobilinogen Normal (Normal) mg/dl Ur Leukocyte Esterase 500 H (Negative) /ul Urine RBC 10-25 SEEN (0-5) /hpf Urine WBC 25-50 SEEN (0-5) /hpf Ur Squamous Epith Cells 0-5 SEEN (5-10) /hpf Urine Bacteria 1+ (None Seen) /hpf Urine Mucus 0 SEEN (<or=2+) /hpf Multi Select Codes - Urinary/Genital Urinary/Genital CPT Codes: 56423-65 non-stress test Interp
== END 2020-04-24 13:45 | disposition home or self-care (01) ==
LOC: WPOUT 11:56 → WP 11:56
PROVIDERS: Referring Provider Obstetrics & Gynecology; Visit Provider Obstetrics & Gynecology
DX: O46.90 Antepartum hemorrhage, unspecified, unspecified trimester (principal); R06.02 Shortness of breath; Z3A.00 Weeks of gestation of pregnancy not specified
CPT/HCPCS: 59050; 81001; 93005; 99218; G0378

== ENCOUNTER 2020-05-06 10:45 | Outpatient (CLI) | payer MEDICAID, SELFPAY ==
[2020-05-06 07:33] VITALS: BMI 27.1
[2020-05-06 10:56] VITALS: PULSE 180; O2SAT 82
[2020-05-06 10:57] VITALS: PULSE 95; O2SAT 100
[2020-05-06 10:58] VITALS: BP 108/69; PULSE 100
[2020-05-06 10:59] VITALS: BMI 26.7
[2020-05-06] MEDS: Lactated Ringers 2,000 ML 999 ML IV (11:10)
[2020-05-06 11:26] VITALS: BP 108/69; PULSE 94; TEMP 37; O2SAT 100
[2020-05-06 12:11] LABS: Hematocrit 34.3 % (37-47); Hemoglobin 11.5 g/dL (12.0-15.0); Mean Corp Hgb Conc 33.5 g/dL (32-36); Mean Corpuscular Hgb 29.5 pg (27.0-32.0); Mean Corpuscular Volume 87.9 fL (81-99); Platelet Count 261 K/mm3 (150-450); RBC Distribution Width CV 12.6 % (11.6-14.6); RBC Distribution Width SD 40.2 fl (35.1-43.9); White Blood Count 10.8 K/mm3 (4.4-11.0)
[2020-05-06 13:33] LABS: Glucose 78 mg/dL (74-106)
--- NOTE | 2020-05-06 13:34 | ECHOD_ITS ---
Reason For Study: CHEST PAIN Procedure This was a 2D Doppler, Color Flow transthoracic echocardiogram. Exam performed portable in patient room. Left Ventricle Normal LV size. Left ventricular systolic function is normal. The estimated ejection fraction is 55 %. No regional wall motion abnormalities noted. Right Ventricle Normal RV size. Normal systolic function. Atria Normal left atrium. Normal right atrium. Mitral Valve Normal mitral valve. Tricuspid Valve Normal tricuspid valve. Mild tricuspid valve insufficiency. Aortic Valve Normal aortic valve. Trisinus/trileaflet aortic valve. Pulmonic Valve Normal pulmonic valve. Great Vessels Normal aortic root. The pulmonary artery is normal size. Normal inferior vena cava. Pericardium/Pleural No pericardial effusion. MMode/2D Measurements & Calculations LVIDd: 4.8 cm IVSd: 0.84 cm Ao root diam: 2.3 cm LVIDs: 2.9 cm LVPWd: 0.87 cm RVDd: 2.6 cm FS: 38.6 % LAV(MOD-bp): 40.3 ml LA A4 area: 14.8 cm2 LA dimension(2D): 3.2 cm LAV(MOD-bp) Indexed: 24.0 ml/m2 LAV(MOD-sp2): 35.5 ml LAV(MOD-sp4): 42.1 ml RA A4 area: 11.1 cm2 Time Measurements MV dec time: 0.21 sec Doppler Measurements & Calculations MV E max reid: 70.7 cm/sec Lat Peak E' Reid: 16.2 cm/sec Med Peak E' Reid: 16.2 cm/sec MV A max reid: 51.6 cm/sec E/E' lat: 4.4 E/E' med: 4.4 MV E/A: 1.4 Ao V2 max: 150.1 cm/sec LV V1 max: 119.4 cm/sec PA V2 max: 97.1 cm/sec Ao max P.0 mmHg LV V1 max P.7 mmHg TR max reid: 201.4 cm/sec TR max P.2 mmHg Interpretation Summary Normal LV size. Left ventricular systolic function is normal. The estimated ejection fraction is 55 %. Mild tricuspid valve insufficiency. Structurally normal valves. Ordering Physician: Beltran Martinez Referring Physician: Guera Kohler Performed By: Elizabeth Caceres, ANA, RVT
--- NOTE | 2020-05-07 19:46 | OB.TRI.PN ---
Progress Notes Date of Service: 05/06/20 Progress Note: Patient presents for triage evaluation secondary to near syncopal episode at cardiology appointment. She was given 2 liters of fluid and felt significantly better. CBC and BGT were normal. FHT: Moderate variability reactive no decelerations category I tracing [place]: No Contractions Assessment and plan: Reactive NST, reassuring maternal and status patient discharged to home to follow-up at next scheduled visit. See problem list details for additional plan information. Laboratory Studies: Laboratory Tests 05/06/20 05/06/20 Range/Units 11:15 11:15 WBC 10.8 (4.4-11.0) K/mm3 RBC 3.90 L (4.2-5.4) M/mm3 Hgb 11.5 L (12.0-15.0) g/dL Hct 34.3 L (37-47) % MCV 87.9 (81-99) fL MCH 29.5 (27.0-32.0) pg MCHC 33.5 (32-36) g/dL RDW Std Deviation 40.2 (35.1-43.9) fl RDW Coeff of Maggie 12.6 (11.6-14.6) % Plt Count 261 (150-450) K/mm3 MPV 9.0 (6.2-12.0) fl Glucose 78 (74-106) mg/dL Multi Select Codes - Urinary/Genital Urinary/Genital CPT Codes: 01300-81 non-stress test Interp
== END 2020-05-06 14:25 | disposition home or self-care (01) ==
LOC: WPOUT 10:51 → WP 10:51
PROVIDERS: Referring Provider Obstetrics & Gynecology; Visit Provider Obstetrics & Gynecology
DX: O26.899 Other specified pregnancy related conditions, unspecified trimester (principal); R55 Syncope and collapse; Z3A.00 Weeks of gestation of pregnancy not specified
CPT/HCPCS: 96360; 96361; 36415; 59050; 82947; 85027; 93306; 99218; J7120; G0378

== ENCOUNTER → 2020-05-07 | Outpatient (CLI) | payer MEDICAID, SELFPAY ==
[2020-05-07 12:00] VITALS: BMI 27.4
== END | disposition home or self-care (01) ==
LOC: LABSPEC 16:49
PROVIDERS: Referring Provider Obstetrics & Gynecology; Visit Provider Obstetrics & Gynecology
DX: N93.9 Abnormal uterine and vaginal bleeding, unspecified (principal)
CPT/HCPCS: 87070; 87205

== ENCOUNTER → 2020-06-15 | Outpatient (CLI) | payer MEDICAID, SELFPAY ==
[2020-06-15 10:03] VITALS: BMI 28.4
== END | disposition home or self-care (01) ==
LOC: LABSPEC 12:44
PROVIDERS: Visit Provider Obstetrics & Gynecology
DX: Z34.93 Encounter for supervision of normal pregnancy, unspecified, third trimester (principal); Z3A.36 36 weeks gestation of pregnancy
CPT/HCPCS: 87081

== ENCOUNTER 2020-06-20 03:20 | Inpatient (IN) | payer MEDICAID, SELFPAY ==
[2020-06-15 10:03] VITALS: BMI 28.4
[2020-06-20] VITALS (61 sets, daily range): BP systolic 87–170; BP diastolic 51–119; PULSE 46–115; RESP 14–18; TEMP 36.4–37.4; O2SAT 93–100; BMI 28.0
[2020-06-20 03:41] LABS: ROM Internal Control Test YES-OK TO RESULT pt. (Internal QC)
[2020-06-20 03:42] LABS: ROM Patient Test POSITIVE (Negative)
[2020-06-20] MEDS: Lactated Ringers 1,000 ML 200 ML IV ×2 (03:42→09:26)
[2020-06-20] MEDS: Lactated Ringers 500 ML 999 ML IV (03:59)
[2020-06-20 04:01] LABS: Absolute Lymphocyte Count 2.03 X10^3/uL (0.83-4.51); Absolute Neutrophil Count 8.5 X10^3/uL (2.0-7.7); Basophil# 0.06 X10^3/uL; Basophil% 0.5 % (0-1); Eosinophil# 0.51 X10^3/uL; Eosinophils% 4.1 % (0-5); Hematocrit 34.7 % (37-47); Hemoglobin 11.4 g/dL (12.0-15.0); Lymphocyte # 2.03 X10^3/ul (4.0); Lymphocyte % 16.3 % (19-41); Mean Corp Hgb Conc 32.9 g/dL (32-36); Mean Corpuscular Hgb 28.2 pg (27.0-32.0); Mean Corpuscular Volume 85.9 fL (81-99); Mean Platelet Vol. 9.3 fl (6.2-12.0); Monocyte# 1.27 X10^3/uL; Monocyte% 10.2 % (0-10); NRBC Flagged by Analyzer 0 % (0-5); Neutrophil # 8.51 X10^3/uL (2.7-7.7); Platelet Count 262 K/mm3 (150-450); Red Blood Count 4.04 M/mm3 (4.2-5.4); White Blood Count 12.5 K/mm3 (4.4-11.0)
[2020-06-20] MEDS: fentaNYL-bupivacaine (epidural) 100 ML BAG EPIDURAL (05:57)
--- NOTE | 2020-06-20 09:23 | HP.PCM_ITS ---
- Problem List (1) Active labor at term Status: Acute (2) 36 weeks gestation of Status: Acute Comment: electronic covid test ordered 06/12/20 (3) Status: Acute Qualifiers: Comment: discussed carrier, genetic and NTD - declines. Normal anatomy (4) Supervision of other normal Status: Acute Comment: PRR SUPRIYA 07/07/2020 boy PC: Palmer Spouse: [place] History and Physical Date of Admission: 06/20/20 Intake Vital Signs 06/15/20 Height 5 ft 2 in 06/15/20 Weight: 155 lb 6 oz 06/15/20 BMI 28.4 06/15/20 BP 116/72 Intake Visit Reasons: 37WK OB Information Technology Intern Required: No Is patient in pain?: No Allergies No Known Allergies Allergy (Verified 06/15/20 10:07) Medications Pnv No.95/Ferrous Fum/Folic AC [ Caplet] 1 ea PO DAILY 04/24/20 [History Confirmed 06/15/20] Last Menstral Period: 08/28/19 Zika: Zika virus screening: Negative : No PFSH PFSH Medical History Supervision of other normal (Acute) (Acute) Abnormal Pap smear of cervix (Acute) Vision problems (Acute) Anemia (Resolved) Family History Mother Anemia Anxiety Father Arthritis Hypertension CAD (coronary artery disease) Grandfather Diabetes Grandmother Diabetes Leukemia Social History (Updated 06/15/20 @ 10:[address] Guera Kohler MD) Smoking Status: Never smoker alcohol intake: former substance use type: does not use caffeine: Yes what type of physical activity do you participate in: none seatbelt use: always do you feel safe at home: Yes additional social history: - [place] Pregancy History 2 Elective abortions Hx Para 1 Spontaneous abortions Hx # Term Pregnancies Ectopic pregnancies Hx # Pregnancies Multiple births # of living children Past Pregnancies Del. Date Name GA/Weeks Outcome Route Bth Weight Gen Labor Lgth Anesthesia Del Locatn Provider FOB 03/14/18 Palmer 38 live - full term 6lbs 8oz Male [address] [facility] [address] Rogers Wood Delivery Date: 03/14/18 Anemic [place],Mariah HPI 37WK OB : Details: KELLY BECKER is a 29 year old who presents for routine OB visit. OB Visit SUPRIYA Calculator Estimated Delivery Date Method Current WG Current Estimate 07/08/20 Ultrasound #2 36w 5d Other Estimates 06/03/20 LMP (Uncertain) 41w 5d 07/06/20 Ultrasound #1 37w 0d Expected Delivery Route/Plan Labor Preferences- labor support person: Don pain management options preferred: epidural cut cord/dad catch: cord : yes PP control planned: considering BTL vs. vasectomy - ACOG handouts given discussed possible routes of delivery and associated risks: discussed possible delivery modalities and possible indications for each including R/B/A of , VAVD, FAVD and CS. questions answered. Hopes to avoid if possible special requests: [] Specific Issue/Plans flu vaccine: given tdap vaccine: 04/29 rhogam: na LARC form signed: 04/29 Problem list reviewed and updated with the most current plan of care details and appropriate orders placed. Relevant counseling for the gestational age provided. Continue routine care and follow up unless otherwise noted in visit notes/problem list details Initial Weight: 129 lb Date EGA Weight BP Urine Prot Glucose FHR FuHt Pres Dilation Effaced St Visit Note 11/27/19 8w 0d 129 lb (+0 oz) 165 GP - Denies cramping/LOF/VB. HR present on US. 12/25/19 12w 0d 129 lb 4 oz (+4 oz) 102/74 Negative Negative 150 GP - no cramping or VB. Anatomy scan ordered. 01/21/20 15w 6d 130 lb (+16 oz) 100/60 Negative Negative 144 MH-NO VB, LOF. MFM anatomy US scheduled. Reviewed normal PNL. 02/18/20 19w 6d 134 lb (+5 lb) 98/60 Negative Negative 145 20 SM- no vb lof some fm no regular ctx. 03/18/20 24w 0d 141 lb 8 oz (+12 lb 8 oz) 108/60 Trace Negative 140 24 GP - no ctx, LOF, VB, DFM. Reports chest tightness and shortness of breath intermittently with activity. Had this sometimes before , but worse recently. Associated with feeling like her heart skips beats. Offered anti- anxiety med to see if helps, but declines. Plan cardiology referral to rule out cardiac cause. 04/13/20 27w 5d 144 lb 8 oz (+15 lb 8 oz) 98/60 Negative Negative 150 27 GP - no cramping, LOF, VB, DFM. Still having chest tightness intermittently. Has not heard from Cardiology - referral placed again. 28wk labs reviewed. Discussed TDAP. 04/29/20 30w 0d 147 lb 8 oz (+18 lb 8 oz) 110/68 Negative Negative 120 30 GP - no ctx, LOF, DFM. Seen in triage last week for bleeding - no bleeding since that time. TDAP and larc form today. 05/07/20 31w 1d 150 lb 4 oz (+21 lb 4 oz) 130/70 Negative Negative 120 31 0 GP - add on for bleeding. Had brown discharge on panty liner this am. No bright red blood. Denies LOF, DFM, ctx. Cx closed. Vaginal cultures collected. 05/25/20 33w 5d 152 lb 6 oz (+23 lb 6 oz) 112/70 Negative Negative 148 33 Cephalic MH-denies concerns. Good FM, no VB, LOF. 06/08/20 35w 5d 155 lb 6 oz (+26 lb 6 oz) 110/72 135 35 Cephalic SM- no vb lof good fm no regular ctx 06/15/20 36w 5d 155 lb 6 oz (+26 lb 6 oz) 116/72 Negative Negative 130 36 Cephalic 0 50 -3 GP - no LOF, VB, dFM, ctx . GBS done. Discussed routes of delivery. ACOG First Trimester First Trimester: Diagnostics Diagnostics Diagnostics Glucose 1 Hr 50 gm 97 mg/dL (70-140) 04/13/20 Hgb 11.5 g/dL (12.0-15.0) L 05/06/20 Hct 34.3 % (37-47) L 05/06/20 Details: HIV: Urine Culture: Sequential Screen: NIPT Screen: ROS ROS Const Reports system reviewed and no additional complaints, except as documented Card Reports system reviewed and no additional complaints, except as documented Resp Reports system reviewed and no additional complaints, except as documented GI Reports system reviewed and no additional complaints, except as documented, Reports nausea Reports system reviewed and no additional complaints, except as documented Musc Reports system reviewed and no additional complaints, except as documented all other systems reviewed and negative Exam Const General: cooperative, healthy appearing, comfortable, no acute distress, well developed, well groomed Nutritional Appearance: average body habitus, well nourished Orientation: alert, awake, oriented x3 HENMT Head: normal to inspection, normocephalic, atraumatic Eyes Pupils: PERRL, accommodation normal Resp Effort & Inspection: normal respiratory effort, able to speak in complete sentences, symmetric chest movement Cardio Rate: regular rate GI Palpation: soft, no guarding, no masses, nontender Skin General: no rashes or lesions noted, elasticity normal, turgor normal Neuro General: alert, awake, oriented x3 Cranial Nerves: CN's II-XI intact bilaterally, sense of smell intact, PERRL, accommodation normal, EOM intact bilaterally Speech: speech normal Gait: normal gait Psych Appearance: grossly normal, well kempt Mental Status: mental status grossly normal Mood: congruent mood Affect: normal affect Speech and Movement: speech and movement normal Attitude: cooperative Thought Process: normal Thought Content: normal Judgment: judgment good Results POC Urinalysis 2 Dip (Clinic) Office Urine Glucose Negative Last Edit by Sadia Umanzor on 06/15/20 10:03 Office Urine Protein Negative Last Edit by Sadia Umanzor on 06/15/20 10:03 Assessment & Plan Problems 1. 36 weeks gestation of Z3A.36 electronic covid test ordered 06/12/20 2. Supervision of other normal Z34.80 PRR SUPRIYA 07/07/2020 boy PC: Palmer Spouse: [place] 3. 36 weeks gestation of Z3A.36 discussed carrier, genetic and NTD - declines. Normal anatomy UPDATE- I have seen the patient and performed any clinically relevant updates to the history and physical exam. Guera Kohler MD
--- NOTE | 2020-06-20 09:24 | OP.PCM_ITS ---
Problem List (1) Active labor at term Status: Acute (2) 36 weeks gestation of Status: Acute Comment: electronic covid test ordered 06/12/20 (3) Status: Acute Qualifiers: Comment: discussed carrier, genetic and NTD - declines. Normal anatomy (4) Supervision of other normal Status: Acute Comment: PRR SUPRIYA 07/07/2020 boy PC: Palmer Spouse: [place] Vaginal Delivery Maternal Presentation: Active Labor 29yo at 37 weeks admitted in active labor. Patient made change to complete dilation without augmentation. Amniotic Membrane Rupture Type: Spontaneous at home Amniotic Fluid Description: Clear Final SUPRIYA: 07/07/20 Gestational age: 37 Weeks and 4 Days Date of Procedure: 06/20/20 Pre-Operative Diagnosis: Term , active labor Post-Operative Diagnosis: same Surgery/ Procedure Performed: Spontaneous Vaginal Delivery Type of Anesthesia: Epidural Description of Procedure: Patient began pushing and delivered the head in the JANELLE presentation. The head was delivered atraumatically and a loose nuchal cord was noted and delivered through. The anterior and posterior shoulders delivered without complication followed by the rest of the and the was placed on the maternal abdomen. Delayed cord clamping was employed for approximately 60 seconds. Cord was clamped and cut and gentle traction was applied to the cord and the placenta delivered spontaneously immediately following it was noted to be intact with three-vessel cord. The perineum and vagina were inspected and midline second- degree perineal laceration was noted and repaired in the standard fashion using 3-0 Vicryl rapide suture. EBL was 150 cc. Patient and tolerated delivery well. Presentation: Vertex, JANELLE Placental Delivery Description: Spontaneous Placenta Disposition: [facility] Cord Vessel Description: 3 Vessels Nuchal Cord Compression: Without compression Cord Entanglement: Around neck x 1, loose Estimated Blood Loss: 150 ml A gender: Male Episiotomy Description: None Laceration: Midline, Perineal Extension/lac, 2nd degree Medications given after delivery: IV Pitocin Complications: None Multi Select Codes - Urinary/Genital Urinary/Genital CPT Codes: 85521 Vaginal Delivery+ PP Care([facility])
[2020-06-20] MEDS: Oxytocin 30 units/NS 500 ml 30 UNITS/500 ML IV.SOLN 334 UNITS IV (09:37)
--- NOTE | 2020-06-20 09:46 | DCINST_ITS ---
Discharge Diet: No Restrictions Discharge Activity: Return to Normal Activity, May not drive while taking narcotic pain medications., May Shower May resume sexual activity in: 4-6 weeks Additional Activity Instructions:: Nothing in the vagina for 4-6 weeks. You may return to work/school in 6 weeks. Call your doctor if your incision/area has: Continuous Slow Oozing, Sudden Increased Bleeding, Increased Pain/ Swelling, Increased Redness, Foul Smelling Discharge Additional Instructions: If you experience any of the following, contact your healthcare provider. * Bleeding that soaks a pad every hour for 2 hours * Fever 100.4 or higher * Unrelieved incision or abdominal pain * Swelling, redness, discharge or bleeding from your incision or episiotomy site * Your incision begins to separate * Problems urinating (including inability to urinate or burning while urinating). * Visual changes * Severe headache * Flu-like symptoms * Pain or redness in one of both of your breasts * Pain, warmth, tenderness or swelling in your legs, especially the calf area * Frequent nausea and vomiting * Symptoms of depression or anxiety If you experience any of the following, call 911 or go to the nearest Emergency Room. * Chest pain * Problems breathing * Seizure activity * Partial or complete paralysis of a body part, slurred speech, weakness or drooping of the face, or a sudden inability to walk or hold your balance Allergies/Adverse Reactions: Allergies No Known Allergies Allergy (Verified 06/20/20 03:07) Medications to take at Discharge Pnv No.95/Ferrous Fum/Folic AC [ Caplet] 1 ea PO DAILY 04/24/20 When: Call to make an appointment with your doctor in 6 weeks. If you had elevated Blood Pressure or 4th degree laceration you will need to be seen in 2 weeks. Primary Care Physician: Care Physician,No Primary [Primary Care Provider] - Test Results: Test results from this visit will be discussed in further detail at your follow- up appointment, if applicable.
[2020-06-20] MEDS: Acetaminophen 500 MG Tablet 1000 MG PO (15:09)
[2020-06-20] MEDS: Naproxen 250 MG Tablet 500 MG PO (21:25)
[2020-06-21] VITALS (9 sets, daily range): BP systolic 102–152; BP diastolic 56–87; PULSE 70–83; RESP 14–20; TEMP 36.8–37.1; O2SAT 98
[2020-06-21] MEDS: Acetaminophen 500 MG Tablet 1000 MG PO (00:43)
--- NOTE | 2020-06-21 10:18 | PCM.PN.OB ---
Patient Problems: Active and Suspected Problems (Last Reviewed 06/15/20 @ 10:07 by Sadia Umanzor) Active labor at term (Acute) 36 weeks gestation of (Acute) electronic covid test ordered 06/12/20 Supervision of other normal (Acute) PRR SUPRIYA 07/07/2020 boy PC: Palmer Spouse: [place] (Acute) discussed carrier, genetic and NTD - declines. Normal anatomy Subjective: Patient doing well without complaints. Tolerating PO. Ambulating and voiding without difficulty. Breast feeding well. Denies chest pain, shortness of breath, calf pain/swelling, fevers, chills, lightheadedness. - Physical Exam Vitals/I&O's: Vital Signs Temp Pulse Resp BP Pulse Ox 98.8 F 83 16 106/56 L 98 06/21/20 08:05 06/21/20 08:06 06/21/20 08:05 06/21/20 08:06 06/21/20 08:05 Oxygen Delivery Method Room Air Weight: 153 lb 3.2 oz Body Mass Index (BMI) 28.0 Intake and Output for Last 24 Hours 06/19/20 06/20/20 06/22/20 23:59 23:59 00:59 Intake Total 3036.67 / 3036.67 Output Total 4250 / 4250 Balance -1213.33 / -1213.33 General: Alert, Oriented x3, Cooperative, No apparent distress, Well developed, Well nourished HEENT: Atraumatic, PERRLA, EOMI, Normocephalic Neck: Supple, No JVD Lungs: Normal air movement Cardiovascular: Regular rate Abdomen: Soft, Non Tender, Non-Distended, - - Fundus firm Extremities: No edema, No Calf Tenderness Neurological: Cranial nerves II-XII grossly intact, Neuro grossly intact Psych/Mental Status: Normal Affect, Appropriate Microbiology Past 72 Hours 06/20/20 06:20 Mucosa - Nose SARS-CoV-2 Antigen (Rapid) - Final Current Medications Acetaminophen (Acetaminophen 500 Mg Tablet) 1,000 mg PO Q8H PRN PRN PRN Reason: Pain Score 1-3 Last Admin: 06/21/20 00:43 Dose: 1,000 mg Documented by: Bisacodyl (Bisacodyl 10 Mg Suppository) 10 mg RC UD PRN PRN Reason: If no BM Dibucaine (Dibucaine 30 Gm Tube) 1 applic TOPICAL TID PRN PRN; Protocol PRN Reason: Discomfort Hydrocortisone (Hydrocortisone 2.5% Crm) 1 applic TOPICAL TID PRN PRN; Protocol PRN Reason: Discomfort Methylergonovine Maleate (Methylergonovine 0.2 Mg/Ml Ampul) 0.2 mg IM X1 PRN PRN Reason: Excess bleeding/uterine atony Naproxen (Naproxen 250 Mg Tablet) 500 mg PO Q8H PRN PRN PRN Reason: Pain Score 1-3 Last Admin: 06/20/20 21:25 Dose: 500 mg Documented by: Ondansetron HCl (Ondansetron 4 Mg/2 Ml Vial) 4 mg IV Q4H PRN PRN PRN Reason: Nausea Senna/Docusate Sodium (Senna/Docusate Sodium 1 Tablet) 1 - 2 tablet PO DAILY PRN PRN PRN Reason: Constipation Simethicone (Simethicone 80 Mg Tablet) 80 mg PO PCHS PRN PRN Reason: Indigestion/Stomach pain Sodium Chloride (0.9% Saline Lock 10 Ml Syringe) 5 - 15 ml IV UD PRN PRN Reason: SALINE FLUSH Medical Necessity - Tobacco Use Smoking Status: Never smoker Assessment/Plan All Active Problems (Last Reviewed 06/15/20 @ 10:07 by Sadia Umanzor) Active labor at term (Acute) 36 weeks gestation of (Acute) Supervision of other normal (Acute) (Acute) Anemia (Resolved) Chest tightness (Resolved) Palpitations (Resolved) Shortness of breath on exertion (Resolved) Tinea corporis (Resolved) s/p PPD # 1 1. routine post delivery care 2. breast feeding- support given 3. rh positive 4. rubella immune
== END 2020-06-21 16:35 | disposition home or self-care (01) | DRG 560 ==
LOC: WPOUT 03:22 → WP 03:23
PROVIDERS: Admitting Provider Obstetrics & Gynecology; Visit Provider Obstetrics & Gynecology
DX: O69.81X0 Labor and delivery complicated by cord around neck, without compression, not applicable or unspecified (principal); O70.1 Second degree perineal laceration during delivery; Z20.828 Contact with and (suspected) exposure to other viral communicable diseases; Z3A.37 37 weeks gestation of pregnancy; Z37.0 Single live birth
CPT/HCPCS: 59025; 59050; 84112; 85025; 86850; 86900; 86901; 87426; 99218; J7120; G0378

== ENCOUNTER → 2020-08-03 | Outpatient (CLI) | payer MEDICAID, SELFPAY ==
[2020-08-03 15:02] VITALS: BMI 24.9
[2020-08-10 12:28] LABS: HPV APTIMA, High Risk Negative (Negative)
== END | disposition home or self-care (01) ==
LOC: LABSPEC 16:34
PROVIDERS: Visit Provider Obstetrics & Gynecology
DX: Z12.4 Encounter for screening for malignant neoplasm of cervix (principal)
CPT/HCPCS: 87624; 88175; G0145

== ENCOUNTER 2020-10-14 13:27 | Emergency (ER) | payer MEDICAID, SELFPAY ==
[2020-08-03 15:02] VITALS: BMI 24.9
[2020-10-14 13:29] VITALS: BP 91/58; PULSE 79; RESP 16; TEMP 36.6; O2SAT 97; BMI 24.7
--- NOTE | 2020-10-14 13:55 | CT_ITS ---
STUDY: CT BRAIN WITHOUT CONTRAST REASON FOR EXAM: Female, 29 years old. DIZZINESS. Vertigo. Vomiting. RADIATION DOSAGE (If Supplied By Facility): CTDIvol = ( 44.99 ) mGy, DLP = ( 745.49 ) mGycm TECHNIQUE: Transaxial CT imaging of the brain was performed without administration of intravenous contrast material. Individualized dose optimization techniques were used for this CT. COMPARISON: No relevant priors. FINDINGS: Normal soft tissue structures. 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 Normal size ventricles and extra-axial spaces for the patient''s age. Normal white matter tracts of the cerebral hemispheres. Normal basal ganglia and thalami. Normal brainstem. Normal cerebellum. There is no intracranial hemorrhage. There are no findings of an acute ischemic infarction. Normal visualized paranasal sinuses. CT/Brain/Head without Contrast IMPRESSION: Normal unenhanced CT scan of the brain. 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 Electronically Signed: Mich Fuentes MD at 14:39 EDT , Service support ,
--- NOTE | 2020-10-14 13:56 | EDS_ITS ---
HPI History of Present Illness Chief Complaint: Dizziness Informant: patient and spouse/S.O. Narrative Narrative: 29-year-old female presents the emergency room with dizziness. She states that she got up around 3 in the morning to care for her 2-year-old. At around 4 she went upstairs to feed the . She states that while feeding she began to have a sensation that the room was spinning. She states that this got progressively worse. She was able to go back to bed and sleep for a few hours. When she got up she states she had to crawl down the floor. She states that she had vomiting. Eventually she was able to take a nap. When she woke from that she was feeling significantly better but still not feeling 100%. [facility] Medical History (Updated 10/14/20 @ 15:[address] Sharif Anderson DO) Abnormal Pap smear of cervix Anemia Supervision of other normal Vision problems Home Medications norethindrone (contraceptive) 0.35 mg tablet 0.35 mg PO DAILY #28 tablet 08/03/20 [Rx Last Taken Unknown] meclizine 25 mg PO BID PRN #20 tab 10/14/20 [Rx Last Taken Unknown] Allergy/AdvReac Type Severity Reaction Status Date / Time No Known Allergies Allergy Verified 08/03/20 15:03 Family History Mother Anemia Anxiety Father Arthritis Hypertension CAD (coronary artery disease) Grandfather Diabetes Grandmother Diabetes Leukemia Social History Smoking Status: Never smoker alcohol intake: former substance use type: does not use caffeine: Yes what type of physical activity do you participate in: none seatbelt use: always do you feel safe at home: Yes additional social history: - [place] TOD BARON ED Constitutional Constitutional ED: Denies chills or weight loss Eyes Eyes: Denies change in vision or diplopia ENT ENT ED: Denies ear pain, rhinorrhea or sore throat Cardiovascular Cardiovascular: Denies chest pain, orthopnea, palpitations or racing heartbeat Respiratory/Chest Respiratory/Chest: Denies cough, dyspnea or orthopnea Gastrointestinal Gastrointestinal: Reports nausea and vomiting; Denies abdominal pain or diarrhea Genitourinary Genitourinary ED: Denies dysuria, hematuria or urinary frequency Musculoskeletal Musculoskeletal: Denies arthralgias or myalgias Integumentary Denies abscess or rash Neurologic Neurologic: Reports other Details: Dizziness ; Denies headache(s) or weakness Psychiatric Psychiatric: Denies anxiety, depression, suicidal ideation or suicidal thoughts Endocrine Endocrinology: Denies polydipsia, polyphagia or polyuria Allergic/Immunologic Allergic/Immunologic ED: Denies mouth swelling, tongue swelling or urticaria EXAM Physical Exam Const Vital Signs: 10/14/20 13:29 10/14/20 14:14 Temperature 97.8 F Temperature Source Temporal Pulse Rate 79 Respiratory Rate 16 Respiratory Effort Normal Non-Labored Respiratory Pattern Normal Blood Pressure 91/58 L Blood Pressure Mean 69 Pulse Ox 97 Oxygen Delivery Method Room Air Positive well nourished and well developed General Appearance ED: well developed HEENT Reports normocephalic, head/scalp atraumatic and moist mucous membranes Eyes PERRL and EOMs intact bilaterally Neck no lymphadenopathy, supple and no JVD Resp normal respiratory effort and clear to auscultation bilaterally Cardio regular rate, regular rhythm and no murmurs GI normal to inspection, nondistended, normoactive bowel sounds and non-tender Palpation: soft Back/Spine no CVA tenderness and normal ROM Extremity normal to inspection General Extremety ED: Negative for edema General Extremity: Negative for edema Neuro oriented x3 and CN's II-XII intact bilaterally Sensorium / Orientation: alert Motor Exam: strength 5/5 throughout Psych mental status grossly normal Mood & Affect: Negative for depressed or tearful Skin no rashes or lesions noted and no wounds MDM MDM MDM Narrative Medical decision making narrative: Based on the patient's history and physical exam I feel that this most likely positional vertigo. As she is breast-feeding a held Valium and we opted for Antivert. CT the brain is negative. Basic blood work negative. Patient is feeling better I think at this point can be discharged home. Return if worsening or concerns Lab Data Attestation: I reviewed the patient's lab results. Labs: Laboratory Results - last 24 hr 10/14/20 10/14/20 14:05 14:05 WBC 7.8 RBC 4.24 Hgb 12.6 Hct 37.2 MCV 87.7 MCH 29.7 MCHC 33.9 RDW Std Deviation 38.6 RDW Coeff of Maggie 12.1 Plt Count 332 MPV 8.2 Immature Gran % (Auto) 0.400 Neut % (Auto) 55.0 Lymph % (Auto) 25.2 [place] % (Auto) 10.2 H Eos % (Auto) 8.6 H Baso % (Auto) 0.6 Absolute Neuts (auto) 4.3 Absolute Lymphs (auto) 1.97 Nucleated RBC % 0 Sodium 139 Potassium 4.0 Chloride 109 H Carbon Dioxide 27.0 Anion Gap 3 L BUN 19 H Creatinine 0.88 Estim Creat Clear Calc 73.26 Est GFR (MDRD) Af Amer 96 Est GFR (MDRD) Non-Af 80 BUN/Creatinine Ratio 21.7 H Glucose 90 Calcium 9.3 Discharge Plan Triage Chief Complaint: Dizziness ED Provider: Sharif Anderson Dx/Rx/DC Orders Clinical Impression: Vertigo Instructions: ED BPV Vertigo Prescriptions: New meclizine 25 mg tablet 25 mg PO BID PRN (Reason: vertigo) Qty: 20 RF: 0 No Action norethindrone (contraceptive) 0.35 mg tablet 0.35 mg PO DAILY Qty: 28 RF: 12 Primary Care Provider: Care Physician,No Primary Referrals: Care Physician,No Primary [Primary Care Provider] - Disposition Disposition: Home, Self Care
[2020-10-14 14:11] LABS: Absolute Lymphocyte Count 1.97 X10^3/uL (0.83-4.51); Absolute Neutrophil Count 4.3 X10^3/uL (2.0-7.7); Basophil# 0.05 X10^3/uL; Basophil% 0.6 % (0-1); Eosinophil# 0.67 X10^3/uL; Eosinophils% 8.6 % (0-5); Hematocrit 37.2 % (37-47); Hemoglobin 12.6 g/dL (12.0-15.0); Lymphocyte # 1.97 X10^3/ul (0.83-4.51); Lymphocyte % 25.2 % (19-41); Mean Corp Hgb Conc 33.9 g/dL (32-36); Mean Corpuscular Hgb 29.7 pg (27.0-32.0); Mean Corpuscular Volume 87.7 fL (81-99); Mean Platelet Vol. 8.2 fl (6.2-12.0); Monocyte% 10.2 % (0-10); NRBC Flagged by Analyzer 0 % (0-5); Neutrophil # 4.31 X10^3/uL (2.7-7.7); Platelet Count 332 K/mm3 (150-450); RBC Distribution Width CV 12.1 % (11.6-14.6); RBC Distribution Width SD 38.6 fl (35.1-43.9); Red Blood Count 4.24 M/mm3 (4.2-5.4); White Blood Count 7.8 K/mm3 (4.4-11.0)
[2020-10-14] MEDS: 0.9% Normal Saline 1,000 ML 1000 ML IV (14:11)
[2020-10-14] MEDS: Meclizine HCl 25 MG Tablet PO (14:11)
[2020-10-14 14:24] LABS: Anion Gap 3 (5-15); BUN 19 mg/dL (7-18); BUN/Creat Ratio 21.7 RATIO (10-20); Calcium,Total 9.3 mg/dL (8.5-10.1); Chloride 109 mmol/L (98-107); Creatinine, Serum 0.88 mg/dL (0.55-1.02); EST Glomerular Filtration Rate 80 mL/min (>60); Est Glom Filt Rate - Afr Amer 96 mL/min (>60); Estimated Creatinine Clearance 73.26 ml/min; Glucose 90 mg/dL (74-106); Sodium Level 139 mmol/L (136-145)
== END 2020-10-14 15:24 | disposition home or self-care (01) ==
PROVIDERS: Emergency Provider Emergency Medicine
DX: R42 Dizziness and giddiness (principal); R11.2 Nausea with vomiting, unspecified
CPT/HCPCS: 70450; 80048; 85025; 96360; 99282; J7030; A4216

== ENCOUNTER → 2023-12-21 | Outpatient (CLI) | payer OTHER, SELFPAY ==
[2023-12-21 15:27] LABS: Absolute Lymphocyte Count 2.49 X10^3/uL (0.83-4.51); Absolute Neutrophil Count 5.2 X10^3/uL (2.0-7.7); Basophil# 0.09 X10^3/uL; Eosinophil# 0.33 X10^3/uL; Eosinophils% 3.7 % (0-5); Hematocrit 41.1 % (37-47); Hemoglobin 13.3 g/dL (12.0-15.0); Lymphocyte # 2.49 X10^3/ul (0.83-4.51); Mean Corp Hgb Conc 32.4 g/dL (32-36); Mean Corpuscular Volume 89.7 fL (81-99); Mean Platelet Vol. 9.2 fl (6.2-12.0); Monocyte# 0.71 X10^3/uL; NRBC Flagged by Analyzer 0 % (0-5); Neutrophil # 5.23 X10^3/uL (2.7-7.7); Platelet Count 392 K/mm3 (150-450); RBC Distribution Width CV 11.7 % (11.6-14.6); Red Blood Count 4.58 M/mm3 (4.2-5.4); White Blood Count 8.9 K/mm3 (4.4-11.0)
[2023-12-21 15:56] LABS: ALB/GLOB Ratio 0.9 RATIO (0.9-2.4); AST(SGOT) 13 U/L (15-37); Alanine Aminotransfer ALT/SGPT 19 U/L (13-56); Albumin, Serum 3.7 g/dL (3.2-5.0); Alkaline Phosphatase 49 U/L (45-117); Anion Gap 9 (5-15); BUN 13 mg/dL (7-18); BUN/Creat Ratio 13.4 RATIO (10-20); Calcium,Total 9.3 mg/dL (8.5-10.1); Chloride 105 mmol/L (98-107); Cholesterol 194 mg/dL (200); Creatinine, Serum 0.97 mg/dL (0.55-1.02); EST Glomerular Filtration Rate 70 mL/min (>60); Est Glom Filt Rate - Afr Amer 84 mL/min (>60); Ferritin 51 ng/mL (8-252); Globulin 3.9 g/dL (2.2-4.2); Glucose 76 mg/dL (74-106); High Density Lipoprotein 57 mg/dL; Iron 76 ug/dL (50-170); Iron Binding Capacity,Total 475 ug/dL (250-450); Magnesium 2.2 mg/dL (1.6-2.6); Potassium 3.4 mmol/L (3.5-5.1); Protein, Total 7.6 g/dL (6.4-8.2); Sodium Level 139 mmol/L (136-145); T4 Free Direct 1.01 ng/dL (0.76-1.46); Thyroid Stim Hormone (TSH) 0.942 uIU/mL (0.358-3.740); Triglycerides 91 mg/dL; Very Low Density Lipoprotein 18 mg/dL (5-40)
[2023-12-23 18:09] LABS: Anti-Centromere B Ab <0.2 AI (0.0-0.9); Anti-Chromatin <0.2 AI (0.0-0.9); Anti-Jo <0.2 AI (0.0-0.9); Anti-Scleroderma-70 AB <0.2 AI (0.0-0.9); Anti-dsDNA Ab <1 IU/mL (0-9); RNP Ab 0.3 AI (0.0-0.9); SJOGREN'S Anti-SS-A test < 0.2 AI (0.0-0.9); SJOGREN'S Anti-SS-B test 3.9 AI (0.0-0.9); Smith Ab <0.2 AI (0.0-0.9)
[2023-12-28 20:09] LABS: T3 Reverse 16.9 ng/dL (9.2-24.1)
== END | disposition home or self-care (01) ==
LOC: BIMLAB 14:21
PROVIDERS: PCP Physician Assistant; Referring Provider Nurse Practitioner; Visit Provider Nurse Practitioner
DX: Z00.00 Encounter for general adult medical examination without abnormal findings (principal); R25.2 Cramp and spasm; R53.83 Other fatigue
CPT/HCPCS: 36415; 80053; 80061; 82728; 83540; 83550; 83735; 84439; 84443; 84482; 85025; 86225; 86235

== ENCOUNTER → 2024-01-15 | Outpatient (CLI) | payer OTHER, SELFPAY ==
[2024-01-23 12:09] LABS: HPV APTIMA, High Risk Negative (Negative)
== END | disposition home or self-care (01) ==
LOC: LABSPEC 09:18
PROVIDERS: PCP Physician Assistant; Referring Provider Obstetrics & Gynecology; Visit Provider Obstetrics & Gynecology
DX: Z12.4 Encounter for screening for malignant neoplasm of cervix (principal)
CPT/HCPCS: 87624; 88175; G0145

== ENCOUNTER → 2024-01-30 | Outpatient (CLI) | payer OTHER, SELFPAY ==
[2024-01-30 14:15] LABS: Mucous, Urine 0 SEEN /hpf (<or=2+)
[2024-01-30 17:35] LABS: Color, Urine Yellow (Yellow); Glucose, Dipstick Normal (Normal); Ketone-Dipstick Negative (Negative); Leukocyte Esterase-Dipstick 500 /ul (Negative); Nitrite-Dipstick Negative (Negative); Occult Blood-Urine 10 /ul (Negative); Protein-Dipstick 15 mg/dl (Negative); Urine Bilirubin Dipstick Negative (Negative); Urine Clarity Sl. Cloudy (Clear); Urine Urobilinogen Normal (Normal)
[2024-01-30 17:42] LABS: Absolute Lymphocyte Count 2.13 X10^3/uL (0.83-4.51); Absolute Neutrophil Count 4.3 X10^3/uL (2.0-7.7); Basophil# 0.06 X10^3/uL; Basophil% 0.8 % (0-1); Eosinophil# 0.53 X10^3/uL; Eosinophils% 6.9 % (0-5); Hematocrit 38.7 % (37-47); Hemoglobin 12.8 g/dL (12.0-15.0); Lymphocyte # 2.13 X10^3/ul (0.83-4.51); Lymphocyte % 27.7 % (19-41); Mean Corp Hgb Conc 33.1 g/dL (32-36); Mean Corpuscular Hgb 29.6 pg (27.0-32.0); Mean Corpuscular Volume 89.6 fL (81-99); Mean Platelet Vol. 9.2 fl (6.2-12.0); Monocyte# 0.64 X10^3/uL; Monocyte% 8.3 % (0-10); NRBC Flagged by Analyzer 0 % (0-5); Neutrophil # 4.31 X10^3/uL (2.7-7.7); Platelet Count 337 K/mm3 (150-450); RBC Distribution Width CV 11.6 % (11.6-14.6); RBC Distribution Width SD 37.3 fl (35.1-43.9); Red Blood Count 4.32 M/mm3 (4.2-5.4); White Blood Count 7.7 K/mm3 (4.4-11.0)
[2024-01-30 17:46] LABS: Bacteria 2+ /hpf (None Seen); Red Blood Cells-Urine 0-5 SEEN /hpf (0-5); Renal Epithelial Cells 0-5 SEEN /hpf (0-5); Squamous Epithelial Cells - UA 5-10 SEEN /hpf (5-10); White Blood Cells 10-25 SEEN /hpf (0-5)
[2024-01-30 17:53] LABS: Protein:Creat Ratio 149 mg/g CRE (0-200)
[2024-01-30 18:07] LABS: AST(SGOT) 9 U/L (15-37); Alanine Aminotransfer ALT/SGPT 19 U/L (13-56); Albumin, Serum 3.9 g/dL (3.2-5.0); Alkaline Phosphatase 41 U/L (45-117); Anion Gap 8 (5-15); BUN 15 mg/dL (7-18); BUN/Creat Ratio 15.1 RATIO (10-20); CRP < 2.90 mg/L (0.0-3.0); Calcium,Total 9.5 mg/dL (8.5-10.1); Chloride 104 mmol/L (98-107); Creatinine, Serum 0.99 mg/dL (0.55-1.02); EST Glomerular Filtration Rate 67 mL/min (>60); Est Glom Filt Rate - Afr Amer 82 mL/min (>60); Globulin 3.8 g/dL (2.2-4.2); Glucose 82 mg/dL (74-106); Potassium 3.6 mmol/L (3.5-5.1); Protein, Total 7.7 g/dL (6.4-8.2); Sodium Level 136 mmol/L (136-145)
[2024-01-30 18:31] LABS: Hepatitis B Surface Antibody Reactive; Hepatitis B Surface Antigen Non-Reactive (Nonreactive); Hepatitis C Antibody Non-Reactive (Nonreactive)
[2024-01-31 04:50] LABS: Erythrocyte Sedimentation Rate 2 mm/hr (0-30)
[2024-02-02 05:07] LABS: Dilute Prothrombin Time (dPT) 43.2 sec (0.0-47.6); Dilute Russell Viper Venom 39.1 sec (0.0-47.0); Interpretation Comment: (.); PTT-LA 42.1 sec (0.0-43.5); Thrombin Time 17.7 sec (0.0-23.0); dPT Confirm Ratio 1.09 Ratio (0.00-1.34)
== END | disposition home or self-care (01) ==
PROVIDERS: PCP Physician Assistant; Referring Provider Internal Medicine Rheumatology; Visit Provider Internal Medicine Rheumatology
DX: M06.4 Inflammatory polyarthropathy (principal); R76.8 Other specified abnormal immunological findings in serum
CPT/HCPCS: 36415; 80053; 81001; 82570; 84156; 85025; 85652; 86140; 86706; 86803; 87340

== ENCOUNTER → 2024-02-21 | Outpatient (CLI) | payer SELFPAY ==
[2024-02-21 10:24] LABS: Absolute Lymphocyte Count 1.94 X10^3/uL (0.83-4.51); Absolute Neutrophil Count 4.9 X10^3/uL (2.0-7.7); Basophil# 0.11 X10^3/uL; Basophil% 1.4 % (0-1); Eosinophil# 0.32 X10^3/uL; Eosinophils% 4.1 % (0-5); Hematocrit 40.6 % (37-47); Hemoglobin 13.5 g/dL (12.0-15.0); Lymphocyte # 1.94 X10^3/ul (0.83-4.51); Lymphocyte % 24.7 % (19-41); Mean Corp Hgb Conc 33.3 g/dL (32-36); Mean Corpuscular Hgb 29.7 pg (27.0-32.0); Mean Corpuscular Volume 89.2 fL (81-99); Mean Platelet Vol. 8.8 fl (6.2-12.0); Monocyte# 0.58 X10^3/uL; Monocyte% 7.4 % (0-10); NRBC Flagged by Analyzer 0 % (0-5); Neutrophil # 4.86 X10^3/uL (2.7-7.7); Platelet Count 414 K/mm3 (150-450); RBC Distribution Width CV 11.7 % (11.6-14.6); Red Blood Count 4.55 M/mm3 (4.2-5.4); White Blood Count 7.8 K/mm3 (4.4-11.0)
[2024-02-21 10:27] LABS: EXAGEN MAILED SPECIMEN
[2024-02-21 10:28] LABS: Protein, Urine (Random) 12.1 mg/dL (<11.9); Protein:Creat Ratio 90 mg/g CRE (0-200)
[2024-02-21 10:38] LABS: Erythrocyte Sedimentation Rate 3 mm/hr (0-30)
[2024-02-21 10:44] LABS: Color, Urine Yellow (Yellow); Glucose, Dipstick Normal (Normal); Ketone-Dipstick Negative (Negative); Leukocyte Esterase-Dipstick 500 /ul (Negative); Nitrite-Dipstick Negative (Negative); Occult Blood-Urine 10 /ul (Negative); Protein-Dipstick Negative (Negative); Urine Bilirubin Dipstick Negative (Negative); Urine Clarity Clear (Clear); Urine Urobilinogen Normal (Normal)
[2024-02-21 10:55] LABS: AST(SGOT) 7 U/L (15-37); Alanine Aminotransfer ALT/SGPT 19 U/L (13-56); Albumin, Serum 3.8 g/dL (3.2-5.0); Alkaline Phosphatase 55 U/L (45-117); Anion Gap 8 (5-15); BUN 18 mg/dL (7-18); BUN/Creat Ratio 17.6 RATIO (10-20); CRP < 2.90 mg/L (0.0-3.0); Calcium,Total 9.3 mg/dL (8.5-10.1); Chloride 103 mmol/L (98-107); Creatinine, Serum 1.02 mg/dL (0.55-1.02); EST Glomerular Filtration Rate 65 mL/min (>60); Est Glom Filt Rate - Afr Amer 79 mL/min (>60); Globulin 3.9 g/dL (2.2-4.2); Glucose 64 mg/dL (74-106); Potassium 3.8 mmol/L (3.5-5.1); Protein, Total 7.7 g/dL (6.4-8.2); Sodium Level 136 mmol/L (136-145)
[2024-02-21 11:14] LABS: Hepatitis B Surface Antibody Reactive; Hepatitis B Surface Antigen Non-Reactive (Nonreactive); Hepatitis C Antibody Non-Reactive (Nonreactive)
== END | disposition home or self-care (01) ==
PROVIDERS: PCP Physician Assistant; Referring Provider Internal Medicine Rheumatology; Visit Provider Internal Medicine Rheumatology
DX: M06.4 Inflammatory polyarthropathy (principal); R76.8 Other specified abnormal immunological findings in serum
CPT/HCPCS: 36415; 80053; 81002; 82570; 84156; 85025; 85652; 86140; 86706; 86803; 87340

== ENCOUNTER → 2024-05-22 | Outpatient (CLI) | payer OTHER, SELFPAY ==
[2024-05-22 12:58] LABS: Absolute Lymphocyte Count 2.44 X10^3/uL (0.83-4.51); Absolute Neutrophil Count 3.7 X10^3/uL (2.0-7.7); Basophil# 0.05 X10^3/uL; Basophil% 0.7 % (0-1); Eosinophil# 0.32 X10^3/uL; Eosinophils% 4.5 % (0-5); Hematocrit 39.7 % (37-47); Lymphocyte # 2.44 X10^3/ul (0.83-4.51); Lymphocyte % 34.2 % (19-41); Mean Corp Hgb Conc 32.7 g/dL (32-36); Mean Corpuscular Hgb 28.8 pg (27.0-32.0); Mean Corpuscular Volume 87.8 fL (81-99); Mean Platelet Vol. 8.8 fl (6.2-12.0); Monocyte# 0.62 X10^3/uL; Monocyte% 8.7 % (0-10); NRBC Flagged by Analyzer 0 % (0-5); Neutrophil # 3.68 X10^3/uL (2.7-7.7); Neutrophil % 51.6 % (47-70); Platelet Count 445 K/mm3 (150-450); RBC Distribution Width CV 11.9 % (11.6-14.6); RBC Distribution Width SD 38.6 fl (35.1-43.9); Red Blood Count 4.52 M/mm3 (4.2-5.4); White Blood Count 7.1 K/mm3 (4.4-11.0)
[2024-05-22 13:37] LABS: ALB/GLOB Ratio 0.9 RATIO (0.9-2.4); AST(SGOT) 15 U/L (15-37); Alanine Aminotransfer ALT/SGPT 23 U/L (13-56); Albumin, Serum 3.7 g/dL (3.2-5.0); Alkaline Phosphatase 51 U/L (45-117); Anion Gap 8 (5-15); BUN 11 mg/dL (7-18); BUN/Creat Ratio 12.3 RATIO (10-20); Chloride 104 mmol/L (98-107); Creatinine, Serum 0.89 mg/dL (0.55-1.02); EST Glomerular Filtration Rate 76 mL/min (>60); Est Glom Filt Rate - Afr Amer 92 mL/min (>60); Globulin 3.9 g/dL (2.2-4.2); Glucose 83 mg/dL (74-106); Potassium 4.3 mmol/L (3.5-5.1); Protein, Total 7.6 g/dL (6.4-8.2); Sodium Level 136 mmol/L (136-145)
== END | disposition home or self-care (01) ==
LOC: MTLAB 10:52
PROVIDERS: PCP Physician Assistant; Referring Provider Internal Medicine Rheumatology; Visit Provider Internal Medicine Rheumatology
DX: M06.4 Inflammatory polyarthropathy (principal); Z79.899 Other long term (current) drug therapy; R76.8 Other specified abnormal immunological findings in serum
CPT/HCPCS: 36415; 80053; 85025

== ENCOUNTER → 2024-08-06 | Outpatient (CLI) | payer OTHER, SELFPAY ==
[2024-08-06 18:32] LABS: ALB/GLOB Ratio 1.5 RATIO (0.9-2.4); AST(SGOT) 17 U/L (<=31); Alanine Aminotransfer ALT/SGPT 12 U/L (<=34); Albumin, Serum 4.3 g/dL (3.5-5.0); Alkaline Phosphatase 40 U/L (35-104); Anion Gap 11 (5-15); BUN 14 mg/dL (4-19); BUN/Creat Ratio 15.2 RATIO (10-20); Calcium,Total 9.5 mg/dL (7.6-11.0); Carbon Dioxide 23.9 mmol/L (21.0-32.0); Chloride 102 mmol/L (98-108); Creatinine, Serum 0.91 mg/dL (0.70-1.20); EST Glomerular Filtration Rate 84 (>60); Globulin 2.9 g/dL (2.2-4.2); Glucose 85 mg/dL (70-99); Potassium 3.7 mmol/L (3.3-5.1); Protein, Total 7.2 g/dL (5.9-8.4); Sodium Level 137 mmol/L (133-145); Total Bilirubin 0.36 mg/dL (0.00-1.30)
== END | disposition home or self-care (01) ==
LOC: MTLAB 13:58
PROVIDERS: PCP Physician Assistant; Referring Provider Internal Medicine Rheumatology; Visit Provider Internal Medicine Rheumatology
DX: M06.4 Inflammatory polyarthropathy (principal); R76.8 Other specified abnormal immunological findings in serum; Z79.899 Other long term (current) drug therapy
CPT/HCPCS: 36415; 80053

== ENCOUNTER → 2025-01-02 | Outpatient (CLI) | payer OTHER, SELFPAY ==
[2025-01-02 12:27] LABS: Hematocrit 39.2 % (37-47); Hemoglobin 13.1 g/dL (12.0-15.0); Immature Granulocytes Count 0.020 X10^3/uL (0.0-0.0); Mean Corp Hgb Conc 33.4 g/dL (32-36); Mean Corpuscular Volume 89.9 fL (81-99); Mean Platelet Vol. 9.0 fl (6.2-12.0); NRBC Flagged by Analyzer 0 % (0-5); Platelet Count 363 K/mm3 (150-450); RBC Distribution Width CV 11.8 % (11.6-14.6); RBC Distribution Width SD 38.5 fl (35.1-43.9); Red Blood Count 4.36 M/mm3 (4.2-5.4); White Blood Count 8.3 K/mm3 (4.4-11.0)
[2025-01-02 12:41] LABS: AST(SGOT) 17 U/L (<=31); Alanine Aminotransfer ALT/SGPT 15 U/L (<=34); Albumin, Serum 4.3 g/dL (3.5-5.0); Alkaline Phosphatase 39 U/L (35-104); Anion Gap 15 (5-15); BUN 15 mg/dL (4-19); BUN/Creat Ratio 16.0 RATIO (10-20); Calcium,Total 9.6 mg/dL (7.6-11.0); Carbon Dioxide 20.6 mmol/L (21.0-32.0); Chloride 103 mmol/L (98-108); Globulin 2.1 g/dL (2.2-4.2); Glucose 67 mg/dL (70-99); Potassium 4.1 mmol/L (3.3-5.1)
== END | disposition home or self-care (01) ==
LOC: MTLAB 09:35
PROVIDERS: PCP Physician Assistant; Referring Provider Internal Medicine Rheumatology; Visit Provider Internal Medicine Rheumatology
DX: M06.4 Inflammatory polyarthropathy (principal); M21.41 Flat foot [pes planus] (acquired), right foot; M21.42 Flat foot [pes planus] (acquired), left foot; R76.8 Other specified abnormal immunological findings in serum; Z79.899 Other long term (current) drug therapy
CPT/HCPCS: 36415; 80053; 85025

== ENCOUNTER → 2025-01-16 | Outpatient (CLI) | payer OTHER, SELFPAY ==
[2025-01-16 12:24] LABS: Hematocrit 39.0 % (37-47); Hemoglobin 13.3 g/dL (12.0-15.0); Immature Granulocytes Count 0.020 X10^3/uL (0.0-0.0); Mean Corp Hgb Conc 34.1 g/dL (32-36); Mean Corpuscular Volume 88.2 fL (81-99); Mean Platelet Vol. 9.2 fl (6.2-12.0); NRBC Flagged by Analyzer 0 % (0-5); Platelet Count 359 K/mm3 (150-450); RBC Distribution Width CV 11.8 % (11.6-14.6); RBC Distribution Width SD 37.7 fl (35.1-43.9); Red Blood Count 4.42 M/mm3 (4.2-5.4); White Blood Count 7.8 K/mm3 (4.4-11.0)
== END | disposition home or self-care (01) ==
LOC: MTLAB 11:01
PROVIDERS: PCP Physician Assistant; Referring Provider Nurse Practitioner Family; Visit Provider Nurse Practitioner Family
DX: R07.89 Other chest pain (principal)
CPT/HCPCS: 36415; 85025

== ENCOUNTER → 2025-01-27 | Outpatient (CLI) | payer OTHER, SELFPAY ==
--- NOTE | 2025-01-27 09:52 | US_ITS ---
PROCEDURE: CHEST 01/27/2025 REASON FOR EXAM: PAIN, SWELLING RIGHT LATERAL AND POSTERIOR CHEST TECHNIQUE: Procedure Code: USCHEST Modality: US Procedure: CHEST COMPARISON: None US/Chest IMPRESSION: No focal lesions or significant fluid collections noted within the region of co ncern within the right lateral chest. Reading Location: [id number]
== END | disposition home or self-care (01) ==
LOC: US 09:50
PROVIDERS: PCP Physician Assistant; Visit Provider Nurse Practitioner Family
DX: R07.89 Other chest pain (principal)
CPT/HCPCS: 76604

== ENCOUNTER → 2025-03-19 | Outpatient (CLI) | payer OTHER, SELFPAY ==
[2025-03-19 13:23] LABS: Vitamin B12 431 pg/mL (180-914); Vitamin D,25 Hydroxy 35.6 ng/mL (30-100)
[2025-03-20 13:08] LABS: Lyme Scn Total Ab w/Rflx Negative (Negative)
== END | disposition home or self-care (01) ==
LOC: MTLAB 09:45
PROVIDERS: PCP Physician Assistant; Referring Provider Internal Medicine; Visit Provider Internal Medicine
DX: M06.4 Inflammatory polyarthropathy (principal); M79.604 Pain in right leg; M79.605 Pain in left leg; R20.0 Anesthesia of skin; R20.2 Paresthesia of skin; R53.83 Other fatigue
CPT/HCPCS: 36415; 82306; 82607; 85652; 86200; 86618